=== PATIENT | female | born 1955 | race Caucasian/White ===

== ENCOUNTER 2016-06-14 17:00 | Inpatient (IN) | payer BC, OTHER ==
[2016-06-14] MEDS ORDERED: Diltiazem 25 MG/5 ML SDV IVPUSH ONE (17:27)
[2016-06-14] MEDS ORDERED: Diltiazem 100 MG in Sodium Chloride 0.9% 100 ML IV SCH ×2 (17:30→18:15)
--- NOTE | 2016-06-14 17:31 | EDM.PDOC ---
ED HISTORY OF PRESENT ILLNESS - General Chief Complaint: Cardiovascular Problem Stated Complaint: HIGH BP/heart racing Time Seen by Provider: 06/14/16 17:25 Source of Information: Reports: Patient, Family (spouse) History Limitations: Reports: No limitations - History of Present Illness INITIAL COMMENTS - FREE TEXT/NARRATIVE: 60-year-old female presents the ED with a awareness of heart palpitations and racing heart with a little bit of heaviness in her central chest. Symptoms been off and on all day. The 3:00 and it seemed to get worse and therefore she decided she needed to come to the ED. She has a history of intermittent atrial fibrillation. She was cardioverted about 5 years ago and placed on Betapace and did well for about 5 years. When she went in for her complete physical examination with Dr. Guzman in the early part of March of this year he was again identified that she was in nature fibrillation. Patient had been relatively asymptomatic at that time. She is once again sent to [facility] and has been followed by cardiology since. Medications were adjusted by her family life counselor last week Tuesday. She was placed on Toprol to provide 24-hour coverage and taken off the Betapace. She also has hypertension which was uncontrolled at last visit. Her fit bit was reading a BP of 226/129 at home. Apparently her amlodipine was discontinued last week as well. She does denies feeling dizzy or lightheaded. Slight heaviness in her chest. No shortness of breath. Able to walk without any difficulty. Denies cough or sputum production. No fever or chills. Patient is an Elliquis 5 mg twice a day as an anticoagulant. Symptom Onset Date: 06/14/16 (Well aware of palpitations since getting up this am. getting up this morning.) Timing/Duration: Reports: Hour(s):, Sudden onset Severity: moderate (Heart rate is up as high as 165 per minute.) Location, General: Reports: chest Quality: Reports: Ache (Slight central chest heaviness.), Pressure (Mild central chest pressure.) Improves with: Reports: None, Other Worsens with: Reports: None Context, General: Denies: Activity (Initially seems to make it better or worse.) , Exercise, Lifting, Sick contact, Trauma, Other Associated Symptoms (General): Reports: chest pain. Denies: no other symptoms, confusion, cough (See history of present illness), cough w sputum, diaphoresis, fever/chills, headaches, loss of appetite, malaise, nausea/vomiting, rash, seizure, shortness of breath, syncope, weakness Treatments CARDIAC CATH LAB MANAGER: Reports: Other (see below) - Related Data Allergies/ADRs: Allergies Allergy/AdvReac Type Severity Reaction Status Date / Time carisoprodol [From Soma] Allergy Hives Verified 06/14/16 17:26 ketorolac tromethamine Allergy Hives Verified 06/14/16 17:26 [From Toradol] Home Meds: Home Meds Allopurinol [Zyloprim] 150 mg PO DAILY 01/31/15 [History] Fexofenadine HCl [Aller-Ease] 180 mg PO DAILY 01/31/15 [History] Furosemide [Lasix] 40 mg PO DAILY 01/31/15 [History] Losartan [Cozaar] 50 mg PO BID 01/31/15 [History] Spironolactone [Aldactone] 25 mg PO DAILY 01/31/15 [History] Apixaban [Eliquis] 5 mg PO BID 06/14/16 [History] Metoprolol Succinate [Toprol XL] 100 tab PO DAILY 06/14/16 [History] Past Medical History Cardiovascular History: Reports: Afib (Is on Eliquis.), Hypertension ( Intermittent atrial fibrillation although present but poorly for the last month. ) Other Cardiovascular History: cardioversion Other OB/BYN History: X 2 Hematologic History: Reports: Other (see below) (5 years when she was initially is seen she was identified to have a very high hemoglobin was greater than 19 with a very high hematocrit. She was thus sent to [facility] for hematology evaluation and just as she was going to have her bone marrow biopsy done she went into atrial fibrillation. She was thus placed on warfarin for a lengthy period of time eventually cardioverted back to sinus rhythm in which is what she knew she had remained up until March of this year apparently the bone marrow did not yield anything except for erythropoiesis.) - Past Surgical History Female Surgical History: Reports: section, Hysterectomy ( ovaries were retained.) Social & Family History - Tobacco Use Smoking Status *Q: Never Smoker Second Hand Smoke Exposure: No - Recreational Drug Use Recreational Drug Use: No - Living Situation & Occupation Living situation: Reports: Occupation: employed ED ROS GENERAL - Review of Systems Review Of Systems: See Below Constitutional: Denies: fever, chills, malaise, weakness, fatigue, decreased appetite, weight loss HEENT: Reports: No symptoms Respiratory: Denies: Shortness of Breath, Wheezing, Pleuritic Chest Pain Cardiovascular: Reports: Chest pain, Blood pressure problem (Slight central chest heaviness.), Palpitations. Denies: Claudication ( Hypertension), Dyspnea on exertion, Edema, Lightheadedness, Orthopnea Endocrine: Reports: no symptoms GI/Abdominal: Reports: No symptoms : Reports: no symptoms Musculoskeletal: Reports: no symptoms Skin: Reports: no symptoms Neurological: Reports: No Symptoms Psychiatric: Reports: No symptoms, Other Immunologic: Reports: no symptoms ED EXAM, GENERAL - Physical Exam Exam: See Below Exam Limited By: No limitations General Appearance: alert, WD/WN, no apparent distress Eye Exam: bilateral eye: normal inspection Neck: normal inspection, supple, non-tender, full range of motion. No: lymphadenopathy (L), lymphadenopathy (R) Respiratory/Chest: no respiratory distress, lungs clear, normal breath sounds, no accessory muscle use, chest non-tender Cardiovascular: no edema, no gallop, no JVD, no murmur, no rub, irregularly irregular (Tyshawn confirms a 2 fibrillation as high as 167 per minute.) Peripheral Pulses: 1+: posterior tibial (L), posterior tibial (R), dorsalis pedis (L), dorsalis pedis (R) GI/Abdominal: normal bowel sounds, soft, non tender, no organomegaly, no distention, no abnormal bruit Back Exam: normal inspection. No: CVA tenderness (L), CVA tenderness (R) Extremities: normal inspection, normal range of motion, non-tender, no pedal edema, normal capillary refill, other (Varicosities both lower extremity) Neurological: alert, oriented, CN II-XII intact, normal cognition, normal gait Psychiatric: normal affect, normal mood Skin Exam: Warm, Dry, Intact, Normal color, No rash EKG INTERPRETATION EKG Date: 06/14/16 Time: 17:35 Rhythm: a-fib (Average rate is 158 per minute) Rate (beats/min): 158 [place]: normal QRS: other (There are near Q waves in leads V1 to V4. Consider intraseptal ischemia.) ST-T: depressed (Mild ST segment depression in leads one and aVL.) QT: prolonged (QT is mildly prolonged for rate.) Course - Vital Signs Last Recorded V/S: Last Vital Signs Temp 36.7 C 06/14/16 17:05 Pulse 104 H 06/14/16 17:45 Resp 18 06/14/16 17:05 BP 146/120 H 06/14/16 17:45 Pulse Ox 97 06/14/16 17:05 - Orders/Labs/Meds Orders: Active Orders 24 hr Category Date Time Status Admission Status [Patient Status] [ADT] Routine ADT 06/14/16 19:28 Ordered EKG Documentation Completion [RC] STAT Care 06/14/16 17:26 Active Chest 1V Frontal [CR] Stat Exams 06/14/16 17:26 Taken Diltiazem [Cardizem] 100 mg Med 06/14/16 18:15 Active Sodium Chloride 0.9% [Normal Saline] 100 ml IV ASDIRECTED Sodium Chloride 0.9% [Normal Saline] 1,000 ml Med 06/14/16 17:30 Active IV ASDIRECTED Medication Orders Sodium Chloride (Normal Saline) 1,000 mls @ 100 mls/hr IV ASDIRECTED JULISA Last Admin: 06/14/16 17:36 Dose: 100 mls/hr Diltiazem HCl 100 mg/ Sodium (Chloride) 100 mls @ 15 mls/hr IV ASDIRECTED JULISA PRN Reason: 15 MG/HR Labs: Laboratory Tests 06/14/16 06/14/16 06/14/16 Range/Units 17:25 17:25 17:25 WBC 9.41 (3.98-10.04) K/mm3 RBC 5.81 H (3.98-5.22) M/mm3 Hgb 17.4 H (11.2-15.7) gm/L Hct 51.7 H (34.1-44.9) % MCV 89.0 (79.4-94.8) fl MCH 29.9 (25.6-32.2) pg MCHC 33.7 (32.2-35.5) g/dl RDW Std Deviation 46.8 H (36.4-46.3) fL Plt Count 178 L (182-369) K/mm3 MPV 13.0 H (9.4-12.3) fl Neutrophils % (Manual) 53 (40-60) % Band Neutrophils % 16 H (0-10) % Lymphocytes % (Manual) 29 (20-40) % Atypical Lymphs % 0 % Monocytes % (Manual) 1 L (2-10) % Eosinophils % (Manual) 1 (0.7-5.8) % Basophils % (Manual) 0 L (0.1-1.2) Platelet Estimate Adequate RBC Morph Comment Normal Sodium 137 (136-145) mEq/L Potassium 4.3 (3.5-5.1) mEq/L Chloride 101 (98-107) mEq/L Carbon Dioxide 25 (21-32) mEq/L Anion Gap 15.3 H (5-15) BUN 39 H (7-18) mg/dL Creatinine 1.1 H (0.55-1.02) mg/dL Est Cr Clr Drug Dosing 56.13 mL/min Estimated GFR (MDRD) 50 (>60) mL/min BUN/Creatinine Ratio 35.5 H (14-18) Glucose 131 H (80-115) mg/dL Calcium 9.7 (8.5-10.1) mg/dL Magnesium 1.8 (1.8-2.4) mg/dl Total Bilirubin 0.5 (0.2-1.0) mg/dL AST 27 (15-37) U/L ALT 32 (14-59) U/L Alkaline Phosphatase 84 (46-116) U/L CK-MB (CK-2) 3.4 (0-3.6) ng/ml Troponin I < 0.017 (0.00-0.056) ng/mL B-Natriuretic Peptide 228 H (0-100) pg/mL Total Protein 8.0 (6.4-8.2) g/dl Albumin 3.9 (3.4-5.0) g/dl Globulin 4.1 gm/dL Albumin/Globulin Ratio 1.0 (1-2) Meds: Medications Generic Name Dose Route Start Last Admin Trade Name Freq PRN Reason Stop Dose Admin Sodium Chloride 1,000 mls @ 100 mls/hr 06/14/16 17:30 06/14/16 17:36 Normal Saline IV 100 mls/hr ASDIRECTED JULISA Administration Diltiazem HCl 100 mg/ Sodium 100 mls @ 15 mls/hr 06/14/16 18:15 Chloride IV ASDIRECTED JULISA 15 MG/HR Discontinued Medications Generic Name Dose Route Start Last Admin Trade Name Che PRN Reason Stop Dose Admin Diltiazem HCl 10 mg 06/14/16 17:27 06/14/16 17:37 Diltiazem IVPUSH 06/14/16 17:28 10 mg ONETIME ONE Administration Diltiazem HCl 100 mg/ Sodium 100 mls @ 10 mls/hr 06/14/16 17:30 06/14/16 17: 45 Chloride IV 10 mg/hr ASDIRECTED JULISA 10 mls/hr 10 MG/HR Administration - Radiology Interpretation Free Text/Narrative:: 60-year-old female presents to the ED with a markedly elevated blood pressure and a atrial fibrillation with a rate averaging 158 per minute. I see it go as high as 168 on the monitor. Recurrence of atrial fibrillation identified in March of this year and a complete physical exam. Subsequently she was put back on Betapace and was already on amlodipine for blood pressure control. Recently these medications have been changed to Toprol-XL 100 mg daily and amlodipine was discontinued. Blood pressures at home and usually been in the 135 range systolically and 85 or less diastolically. She is a little heaviness in her central chest. She denies being dizzy lightheaded or short of breath. She identified that palpitations have been quite rapid said she got up this morning. Plan she will routine labs performed. ECG done one view chest x-ray Cardizem 10 mg IV bolus and Cardizem drip at 10 mg per hour. - Re-Assessments/Exams Free Text/Narrative Re-Assessment/Exam: 06/14/16 18:10 : Rate is improved to around 135 range. BP is 130/99. ECG confirmed ventricular fibrillation with near Q waves in V1 to V4. There is also mild ST segment depression in leads one and aVL concerning for possible ischemia. She feels much better with very little awareness of palpitations at this time. The chest x-ray done shows mild cardiomegaly with mild diffuse vascular congestion particularly at the right hilum. There are no pleural effusions, remainder of her labs are pending. Plan I will put a Cardizem drip to 15 mg per hour. 06/14/16 18:44 white count is 9.41 with 53% neutrophils and 16% band cells reported. This needs to be reviewed by pathology. Hemoglobin 17.4 with hematocrit of 51.7 pelvis 178,000. Chemistry shows a sodium of 137 potassium 4.3 anion gap of 15.3 BUN is 39. Crit is 1.1 glucose is 131 BNP is 228. Troponin is normal at less than 0.017 and CK-MB fraction is 3.4. Therefore no evidence of myocardial infarction at this time. Sutures on a Cardizem drip she' ll need to be converted to oral medications and she will have to be admitted to the intensive care unit because of a Cardizem drip. Blood pressure at this time is down to 139/97. Heart rate is 110. 06/14/16 19:30; cased discussed with Dr. Martinez buttermaker continuous churn hospitalist and the patient will be admitted to the intensive care unit due to being on a Cardizem drip. Tentatively she will be converted to the oral form of Cardizem for rate control. This will also provide better blood pressure control. Departure - Departure Time of Disposition: 19:31 Disposition: Admitted As Inpatient 65 Reason for Transfer *Q: Other Condition: fair Clinical Impression: Chronic atrial fibrillation with rapid ventricular response, Uncontrolled hypertension CHF NYHA class III (symptoms with mildly strenuous activities) Qualifiers: Congestive heart failure type: unspecified congestive heart failure type Qualified Code(s): I50.9 - Heart failure, unspecified Forms: ED Department Discharge - My Orders Last 24 Hours: My Active Orders 06/14/16 17:26 EKG Documentation Completion [RC] STAT Chest 1V Frontal [CR] Stat 06/14/16 17:30 Sodium Chloride 0.9% [Normal Saline] 1,000 ml IV ASDIRECTED 06/14/16 18:15 Diltiazem [Cardizem] 100 mg Sodium Chloride 0.9% [Normal Saline] 100 ml IV ASDIRECTED 06/14/16 19:28 Admission Status [Patient Status] [ADT] Routine - Assessment/Plan Last 24 Hours: My Active Orders 06/14/16 17:26 EKG Documentation Completion [RC] STAT Chest 1V Frontal [CR] Stat 06/14/16 17:30 Sodium Chloride 0.9% [Normal Saline] 1,000 ml IV ASDIRECTED 06/14/16 18:15 Diltiazem [Cardizem] 100 mg Sodium Chloride 0.9% [Normal Saline] 100 ml IV ASDIRECTED 06/14/16 19:28 Admission Status [Patient Status] [ADT] Routine
[2016-06-14] MEDS: Sodium Chloride 0.9% 1,000 ML IV SCH (17:36)
--- NOTE | 2016-06-14 20:10 | PCM.HP ---
H&P History of Present Illness - General Date of Service: 06/14/16 Admit Problem/Dx: Admission Diagnosis/Problem Admission Diagnosis/Problem Atrial fibrillation Source of Information: Patient, Family, Old records, Provider, RN notes reviewed History Limitations: Reports: No limitations - History of Present Illness Initial Comments - Free Text/Narative: This is a 60 yo white female with past medical hx/o HTN, Gout, AR, Peripheral Edema, Chronic Polycythemia and Obesity who comes in with complaints of intermittent heart palpitation associated with chest heaviness. She denies any feeling of dizziness or lightheadedness. No shortness of breath, dyspnea, nausea or vomiting. Patient carries a hx/o Atrial Fibrillation S/p Cardioversion 5 years ago. She well for 5 years. Unfortunately, she was found recently in atrial fibrillation just as she was about to have a bone marrow biopsy in [place]. Patient just saw cardiology, BARRY Eastman with meds changes. On presentation to ED she was in a-fib with rvr with heart rate as high as 150s. She was also found with malignant blood pressure of 142/120 mmHg. According to patient, her fitbit at home registered a even higher BP of 226/129 mmHg. Patient is currently on cardizem rip. She is full code. - Related Data Allergies/Adverse Reactions: Allergies Allergy/AdvReac Type Severity Reaction Status Date / Time carisoprodol [From Soma] Allergy Hives Verified 06/14/16 17:26 ketorolac tromethamine Allergy Hives Verified 06/14/16 17:26 [From Toradol] Home Medications: Home Meds Allopurinol [Zyloprim] 150 mg PO DAILY 01/31/15 [History] Fexofenadine HCl [Aller-Ease] 180 mg PO DAILY PRN 01/31/15 [History] Furosemide [Lasix] 40 mg PO DAILY 01/31/15 [History] Losartan [Cozaar] 50 mg PO BID 01/31/15 [History] Spironolactone [Aldactone] 25 mg PO DAILY 01/31/15 [History] Apixaban [Eliquis] 5 mg PO BID 06/14/16 [History] Metoprolol Succinate [Toprol XL] 100 tab PO DAILY 06/14/16 [History] Past Medical History Cardiovascular History: Reports: Afib (Is on Eliquis.), Hypertension ( Intermittent atrial fibrillation although present but poorly for the last month. ) Other Cardiovascular History: cardioversion Other OB/BYN History: X 2 Hematologic History: Reports: Other (see below) (5 years when she was initially is seen she was identified to have a very high hemoglobin was greater than 19 with a very high hematocrit. She was thus sent to [place] for hematology evaluation and just as she was going to have her bone marrow biopsy done she went into atrial fibrillation. She was thus placed on warfarin for a lengthy period of time eventually cardioverted back to sinus rhythm in which is what she knew she had remained up until March of this year apparently the bone marrow did not yield anything except for erythropoiesis.) - Past Surgical History Female Surgical History: Reports: section, Hysterectomy ( ovaries were retained.) Social & Family History - Tobacco Use Smoking Status *Q: Never Smoker Second Hand Smoke Exposure: No - Caffeine Use Caffeine Use: Reports: Coffee - Recreational Drug Use Recreational Drug Use: No - Living Situation & Occupation Living situation: Reports: Occupation: employed H&P Review of Systems - Review of Systems: Review Of Systems: See Below HEENT: Reports: no symptoms Pulmonary: Denies: Shortness of Breath Cardiovascular: Reports: chest pain, palpitations, blood pressure problem Gastrointestinal: Denies: Abdominal pain, Nausea, Vomiting Genitourinary: Reports: no symptoms Skin: Denies: cyanosis, pallor, pruritis, rash, erythema Psychiatric: Denies: depression, anxiety, hallucinations Neurological: Reports: No Symptoms Hematologic/Lymphatic: Reports: no symptoms Immunologic: Reports: no symptoms Exam - Exam Exam: See Below - Vital Signs Vital Signs: Last Vital Signs Temp 36.7 C 06/14/16 17:05 Pulse 104 H 06/14/16 17:45 Resp 18 06/14/16 17:05 BP 146/120 H 06/14/16 17:45 Pulse Ox 97 06/14/16 17:05 Weight: 140.614 kg - Exam General: alert, oriented, cooperative, other (Obese). No: mild distress HEENT: Conjunctiva clear, EACs clear, EOMI, Hearing intact, Mucosa moist & pink , Nares patent, Normal nasal septum, Posterior pharynx clear, PERRLA Neck: supple, trachea midline, 2+ carotid pulse wo bruit, full range of motion, other (short and thick) Lungs: Clear to auscultation, Normal respiratory effort Cardiovascular: irregular rhythm, other (irregular rate) Abdomen: normal bowel sounds, soft, other (Obese). No: organomegaly (Female) Exam: Deferred Rectal (Female) Exam: Deferred Back Exam: normal inspection, decreased range of motion Extremities: normal inspection, edema. No: normal pulses, clubbing, cyanosis, calf tenderness Peripheral Pulses: 2+: dorsalis pedis (L), dorsalis pedis (R) Skin: warm, dry, intact Neuro Extensive - Mental Status: oriented x3, normal cognition, memory intact Neuro Extensive - Motor, Sensory, Reflexes: CN II-XII intact, normal gait Psychiatric: alert, normal affect, normal mood - Patient Data Result Diagrams: 06/14/16 17:25 06/14/16 17:25 EKG INTERPRETATION EKG Date: 06/14/16 Time: 17:35 Rhythm: a-fib Rate (beats/min): 158 [place]: normal P-wave: absent QT: prolonged *Q Meaningful Use (ADM) - VTE *Q VTE Criteria *Q: - Stroke *Q Stroke Criteria *Q: - AMI *Q AMI Criteria *Q: Problem List Initiated/Reviewed/Updated: Yes Orders Last 24hrs: Medication Orders Sodium Chloride (Normal Saline) 1,000 mls @ 100 mls/hr IV ASDIRECTED [facility] Last Admin: 06/14/16 17:36 Dose: 100 mls/hr Diltiazem HCl 100 mg/ Sodium (Chloride) 100 mls @ 15 mls/hr IV ASDIRECTED JULISA PRN Reason: 15 MG/HR Assessment/Plan Comment:: Assessment/Plan: Acute: Paroxysmal Atrial Fibrillation with RVR - On Metoprolol 100 mg po BID - Eliquis 5 mg po BID for stroke prophylaxis - Check thyroid panel - Currently on Cardizem drip - Oral Cardizem 180 mg po daily once off drip - Follow up with cardiology after d/c Malignant Hypertension - 146/120 mmHg on presentation, her fibit registered a BP reading of 226/129 - BP Meds: Cozaar 50 mg po BID, Lasix 40 mg po daily and Aldactone 25 mg po daily - Will add Clonidine 0.1 mg po TID x 3 doses only - PRN Hydralazine 20 mg IVP Q4 Chronic: Gout AR Peripheral Edema Polycythemia Morbid Obesity Plan: Admit to ICU Routine AM Labs Resume Home Meds Thyroid Panel PT/OT consult SW/CM for d/c planning Code status:1
[2016-06-14] MEDS ORDERED: HYDROmorphone 1 MG/ML Syringe IVPUSH PRN (20:18)
[2016-06-14] MEDS ORDERED: Bisacodyl 5 MG Tab PO PRN (20:18)
[2016-06-14] MEDS ORDERED: Albuterol/Ipratropium 3.0-0.5 MG/3 ML Neb Soln NEB PRN (20:18)
[2016-06-14] MEDS ORDERED: LORazepam 2 MG/ML MDV IV PRN (20:18)
[2016-06-14] MEDS ORDERED: Polyethylene Glycol 3350 Powder 17 GM Packet PO PRN (20:18)
[2016-06-14] MEDS ORDERED: Acetaminophen 325 MG Tab PO PRN (20:18)
[2016-06-14] MEDS ORDERED: Promethazine 12.5 MG in Sodium Chloride 0.9% 50 ML IV PRN (20:18)
[2016-06-14] MEDS ORDERED: Temazepam 15 MG Cap PO PRN (20:18)
[2016-06-14] MEDS ORDERED: Ondansetron 4 MG/2 ML SDV IV PRN (20:18)
[2016-06-14] MEDS ORDERED: Metoprolol Tartrate 5 MG/5 ML SDV IVPUSH PRN (20:21)
[2016-06-14] MEDS ORDERED: hydrALAZINE 20 MG/ML SDV IVPUSH PRN (20:21)
[2016-06-14] MEDS ORDERED: Loratadine 10 MG Tab PO SCH (20:45)
[2016-06-14] MEDS: Apixaban 5 MG Tab PO SCH (20:59)
[2016-06-14] MEDS: cloNIDine 0.1 MG Tab PO SCH (20:59)
[2016-06-14] MEDS: Losartan 100 MG Tab PO SCH (21:00)
[2016-06-14] MEDS ORDERED: Magnesium Sulfate/Water 2 GM in Premix Bag 1 BAG IV ONE (23:00)
[2016-06-15] MEDS: Sodium Chloride 0.9% 1,000 ML IV SCH (02:53)
[2016-06-15] MEDS: Diltiazem 180 MG Cap.CD PO SCH (05:41)
[2016-06-15] MEDS: cloNIDine 0.1 MG Tab PO SCH ×2 (05:42→12:53)
[2016-06-15] MEDS ORDERED: Diltiazem 180 MG Cap.CD PO SCH ×2 (05:45→09:00)
--- NOTE | 2016-06-15 08:18 | CR ---
Chest: Portable view of the chest was obtained. Comparison: Previous chest x-ray of 11/13/12. Heart size is slightly enlarged. Tortuous thoracic aorta is seen. Lungs are clear. Bony structures are grossly intact. Impression: 1. Nothing acute is identified on portable chest x-ray. Diagnostic code #1
--- NOTE | 2016-06-15 08:45 | PCM.PN ---
- General Info Date of Service: 06/15/16 Admission Dx/Problem (Free Text): Admission Diagnosis/Problem Admission Diagnosis/Problem Atrial fibrillation Subjective Update: Follow Up Functional Status: Reports: pain controlled, tolerating diet, ambulating, urinating. Denies: new symptoms - Review of Systems General: Denies: Fever, Weakness, Fatigue, Malaise, Chills HEENT: Reports: no symptoms Pulmonary: Denies: shortness of breath Cardiovascular: Denies: Chest Pain, Palpitations, Dyspnea on Exertion Gastrointestinal: Denies: Abdominal pain, Nausea, Vomiting Genitourinary: Reports: no symptoms, dysuria Musculoskeletal: Reports: no symptoms Skin: Denies: cyanosis, pallor, rash Neurological: Denies: Dizziness, Seizure, Syncope, Difficulty Walking, Weakness , Gait Disturbance Psychiatric: Denies: depression, anxiety, agitation, hallucinations Systems Review Comment:: No overnight or acute issues. She is doing relatively well. She is now off Cardizem drip. Her pressures have significantly improved. - Patient Data Vitals - most recent: Last Vital Signs Temp 37.1 C 06/15/16 04:00 Pulse 89 06/14/16 23:09 Resp 18 06/15/16 08:00 BP 101/73 06/15/16 08:00 Pulse Ox 93 L 06/15/16 08:00 Weight - most recent: 141.566 kg I&O - last 24 hours: Intake & Output 06/14/16 06/15/16 06/15/16 22:59 06:59 14:59 Intake Total 1138 Output Total 350 400 Balance -350 738 Lab Results last 24 hrs: Laboratory Results - last 24 hr 06/15/16 06/15/16 Range/Units 06:30 06:30 WBC 5.16 (3.98-10.04) K/mm3 RBC 5.02 (3.98-5.22) M/mm3 Hgb 15.1 (11.2-15.7) gm/L Hct 45.4 H (34.1-44.9) % MCV 90.4 (79.4-94.8) fl MCH 30.1 (25.6-32.2) pg MCHC 33.3 (32.2-35.5) g/dl RDW Std Deviation 47.0 H (36.4-46.3) fL Plt Count 159 L (182-369) K/mm3 MPV 12.6 H (9.4-12.3) fl Neut % (Auto) 48.2 (34.0-71.1) % Lymph % (Auto) 39.5 (19.3-51.7) % Floyd % (Auto) 10.3 (4.7-12.5) % Eos % (Auto) 1.4 (0.7-5.8) Baso % (Auto) 0.6 (0.1-1.2) % Neut # 2.49 (1.56-6.13) K/mm3 Lymph # 2.04 (1.18-3.74) K/mm3 Floyd # 0.53 H (0.24-0.36) K/mm3 Eos # 0.07 (0.04-0.36) K/mm3 Baso # 0.03 (0.01-0.08) K/mm3 Sodium 139 (136-145) mEq/L Potassium 4.0 (3.5-5.1) mEq/L Chloride 105 (98-107) mEq/L Carbon Dioxide 26 (21-32) mEq/L Anion Gap 12.0 (5-15) BUN 34 H (7-18) mg/dL Creatinine 1.1 H (0.55-1.02) mg/dL Est Cr Clr Drug Dosing 56.13 mL/min Estimated GFR (MDRD) 50 (>60) mL/min BUN/Creatinine Ratio 30.9 H (14-18) Glucose 121 H (80-115) mg/dL Calcium 8.4 L (8.5-10.1) mg/dL Magnesium 2.0 (1.8-2.4) mg/dl Free T4 1.11 (0.76-1.46) ng/dL TSH 3rd Generation 1.156 (0.358-3.74) uIU/mL Med Orders - Current: Current Medications Acetaminophen (Tylenol) 650 mg PO Q4H PRN PRN Reason: Pain (Mild 1-3)/fever Acetaminophen/Hydrocodone Bitart ([place] 325-5 Mg) 1 tab PO Q4H PRN PRN Reason: Pain (moderate 4-6) Albuterol/Ipratropium (Duoneb 3.0-0.5 Mg/3 Ml) 3 ml NEB Q4H PRN PRN Reason: Shortness Of Breath/wheezing Allopurinol (Zyloprim) 150 mg PO DAILY [facility] Apixaban (Eliquis) 5 mg PO BID [facility] Last Admin: 06/14/16 20:59 Dose: 5 mg Bisacodyl (Dulcolax) 5 mg PO DAILY PRN PRN Reason: Constipation Clonidine HCl (Catapres) 0.1 mg PO Q8H [facility] Last Admin: 06/15/16 05:42 Dose: 0.1 mg Diltiazem HCl (Cardizem Cd) 180 mg PO DAILY [facility] Last Admin: 06/15/16 05:41 Dose: 180 mg Furosemide (Lasix) 40 mg PO DAILY [facility] Hydralazine HCl (Apresoline) 20 mg IVPUSH Q4H PRN PRN Reason: Hypertension Hydromorphone HCl (Dilaudid) 0.25 mg IVPUSH Q2H PRN PRN Reason: Pain (severe 7-10) Sodium Chloride (Normal Saline) 1,000 mls @ 100 mls/hr IV ASDIRECTED [facility] Last Admin: 06/15/16 02:53 Dose: 100 mls/hr Diltiazem HCl 100 mg/ Sodium (Chloride) 100 mls @ 15 mls/hr IV ASDIRECTED [facility] PRN Reason: 15 MG/HR Last Infusion: 06/15/16 05:40 Dose: 0 mg/hr, 0 mls/hr Promethazine HCl 12.5 mg/ (Sodium Chloride) 50.5 mls @ 100 mls/hr IV Q6H PRN PRN Reason: Nausea/Vomiting Lorazepam (Ativan) 1 mg IV Q6H PRN PRN Reason: Nausea/Vomiting Losartan Potassium (Cozaar) 50 mg PO BID [facility] Last Admin: 06/14/16 21:00 Dose: 50 mg Magnesium Sulfate (Pharmacy To Dose - Magnesium Replacement) 0 dose .XX ASDIRECTED PRN PRN Reason: RX DOSE Metoprolol Succinate (Toprol Xl) 100 mg PO DAILY [facility] Metoprolol Tartrate (Lopressor) 5 mg IVPUSH Q4H PRN PRN Reason: Tachycardia Ondansetron HCl (Zofran) 4 mg IV Q6H PRN PRN Reason: Nausea/Vomiting Polyethylene Glycol (Miralax) 17 gm PO DAILY PRN PRN Reason: Constipation Potassium Chloride (Pharmacy To Dose - Potassium Replacement) 0 dose .XX ASDIRECTED PRN PRN Reason: RX DOSE Senna/Docusate Sodium (Senna Plus) 1 tab PO BID PRN PRN Reason: Constipation Spironolactone (Aldactone) 25 mg PO DAILY [facility] Temazepam (Restoril) 30 mg PO BEDTIME PRN PRN Reason: Sleep Discontinued Medications Diltiazem HCl (Diltiazem) 10 mg IVPUSH ONETIME ONE Stop: 06/14/16 17:28 Last Admin: 06/14/16 17:37 Dose: 10 mg Diltiazem HCl (Cardizem Cd) 180 mg PO DAILY [facility] Diltiazem HCl (Cardizem Cd) 180 mg PO DAILY [facility] Diltiazem HCl 100 mg/ Sodium (Chloride) 100 mls @ 10 mls/hr IV ASDIRECTED [facility] PRN Reason: 10 MG/HR Last Admin: 06/14/16 17:45 Dose: 10 mg/hr, 10 mls/hr Magnesium Sulfate 2 gm/ Premix 50 mls @ 50 mls/hr IV ONETIME ONE Stop: 06/14/16 23:59 Last Admin: 06/14/16 23:09 Dose: 50 mls/hr Loratadine (Claritin) 10 mg PO DAILY [facility] Last Admin: 06/14/16 21:01 Dose: Not Given - Exam General: alert, oriented, cooperative, other (Obese) HEENT: Pupils equal, Pupils reactive, EOMI, Mucous membr. moist/pink Neck: supple, trachea midline, no JVD, no thyromegaly, other (short and thick) Lungs: Clear to auscultation, Normal respiratory effort Cardiovascular: Irregular Rhythm, Other (irregular rate) Abdomen: bowel sounds present, soft, no tenderness, no distension, other (Obese) (Female) Exam: Deferred Back Exam: normal inspection, decreased range of motion Extremities: no edema, normal pulses, no tenderness/swelling, no clubbing, no cyanosis, no calf tenderness Peripheral Pulses: 2+: dorsalis pedis (L), dorsalis pedis (R) Skin: warm, dry, intact Neurological: no new focal deficit Psy/Mental Status: alert, normal affect, normal mood - Problem List Review Problem List Initiated/Reviewed/Updated: Yes - My Orders Last 24 Hours: My Active Orders 03/20/17 20:18 Cardiac Monitoring [RC] CONTINUOUS Height and Weight [RC] DAILY Intake and Output [RC] QSHIFT Oxygen Therapy [RC] PRN Up With Assistance [RC] ASDIRECTED Up ad Suzie [RC] ASDIRECTED VTE/DVT Education [RC] PER UNIT ROUTINE Vital Signs [RC] Q4HR Acetaminophen [Tylenol] 650 mg PO Q4H PRN Acetaminophen/HYDROcodone [[place] 325-5 MG] 1 tab PO Q4H PRN Albuterol/Ipratropium [DuoNeb 3.0-0.5 MG/3 ML] 3 ml NEB Q4H PRN Bisacodyl [Dulcolax] 5 mg PO DAILY PRN Docusate Sodium/Sennosides [Senna Plus] 1 tab PO BID PRN HYDROmorphone [Dilaudid] 0.25 mg IVPUSH Q2H PRN LORazepam [Ativan] 1 mg IV Q6H PRN Ondansetron [Zofran] 4 mg IV Q6H PRN Polyethylene Glycol 3350 [MiraLAX] 17 gm PO DAILY PRN Promethazine [Phenergan] 12.5 mg Sodium Chloride 0.9% [Normal Saline] 50 ml IV Q6H Temazepam [Restoril] 30 mg PO BEDTIME PRN Resuscitation Status Routine 06/14/16 20:19 RT Aerosol Therapy [RC] ASDIRECTED 06/14/16 20:20 Consult to Case Management [CONS] Routine Consult to Energy Attorney [CONS] Routine OT Evaluation and Treatment [CONS] Routine PT Evaluation and Treatment [CONS] Routine 06/14/16 20:21 Metoprolol Tartrate [Lopressor] 5 mg IVPUSH Q4H PRN hydrALAZINE [Apresoline] 20 mg IVPUSH Q4H PRN 06/14/16 20:30 Magnesium Rep Pharmacy to Dose [Pharmacy to Dose - Magnesium Replacement] 0 dose .XX ASDIRECTED PRN Potassium Rep Pharmacy to Dose [Pharmacy to Dose - Potassium Replacement] 0 dose .XX ASDIRECTED PRN cloNIDine [Catapres] 0.1 mg PO Q8H 06/14/16 21:00 Apixaban [Eliquis] 5 mg PO BID Losartan [Cozaar] 50 mg PO BID 06/14/16 Dinner Regular Diet [DIET] 06/15/16 05:45 Diltiazem [Cardizem CD] 180 mg PO DAILY 06/15/16 07:00 EKG Documentation Completion [RC] AM 06/15/16 09:00 Allopurinol [Zyloprim] 150 mg PO DAILY Furosemide [Lasix] 40 mg PO DAILY Metoprolol Succinate [Toprol XL] 100 mg PO DAILY Spironolactone [Aldactone] 25 mg PO DAILY 06/16/16 05:11 BASIC METABOLIC PANEL,BMP [CHEM] AM CBC WITH AUTO DIFF [HEME] AM MAGNESIUM [CHEM] AM 06/17/16 05:11 MAGNESIUM [CHEM] AM - Plan Plan:: Assessment/Plan: Acute: S/p Paroxysmal Atrial Fibrillation with RVR, HR now contrilled - On Metoprolol 100 mg po BID and Cardizem 180 po daily - Eliquis 5 mg po BID for stroke prophylaxis - Thyroid panel wnl - Now off Cardizem drip - Oral Cardizem 180 mg po daily once off drip - Follow up with cardiology after d/c S/p Malignant Hypertension - 146/120 mmHg on presentation, her fibit registered a BP reading of 226/129 - BP Meds: Cozaar 50 mg po BID, Lasix 40 mg po daily and Aldactone 25 mg po daily - Will add Clonidine 0.1 mg po TID x 3 doses only - PRN Hydralazine 20 mg IVP Q4 Chronic: Gout AR Peripheral Edema Polycythemia Morbid Obesity Plan: She is clinically stable Routine AM Labs Continue PT/OT Encourage to ambulate TID-QID, so we can see his HR response to activity SW/CM for d/c planning Code status:1 Spoke to BARRY Crenshaw today and updated her about patient's clinical progress. Informed her, patient will likely be discharged in AM. Advised to monitor her BP along with her HR. I expressed my concerns with her regarding this this patient being on multiple BP/Rate control meds. She will either address it or patient's PCP on follow up appointment.
[2016-06-15] MEDS: Apixaban 5 MG Tab PO SCH ×2 (08:50→21:01)
[2016-06-15] MEDS: Losartan 100 MG Tab PO SCH ×2 (08:50→21:01)
[2016-06-15] MEDS: Furosemide 20 MG Tab PO SCH (08:51)
[2016-06-15] MEDS: Spironolactone 25 MG Tab PO SCH (08:51)
[2016-06-15] MEDS: Metoprolol Succinate 50 MG Tab.ER PO SCH (08:52)
[2016-06-15] MEDS: Allopurinol 300 MG Tab PO SCH (08:52)
[2016-06-15] MEDS ORDERED: HYDROmorphone 0.5 MG/0.5 ML Syringe IVPUSH PRN (10:59)
[2016-06-15] MEDS ORDERED: Temazepam 30 MG Cap PO PRN (10:59)
[2016-06-16] MEDS: Allopurinol 300 MG Tab PO SCH (09:23)
[2016-06-16] MEDS: Losartan 100 MG Tab PO SCH ×2 (09:23→20:19)
[2016-06-16] MEDS: Diltiazem 180 MG Cap.CD PO SCH ×3 (09:23→21:44)
[2016-06-16] MEDS: Furosemide 20 MG Tab PO SCH (09:24)
[2016-06-16] MEDS: Metoprolol Succinate 50 MG Tab.ER PO SCH (09:24)
[2016-06-16] MEDS: Spironolactone 25 MG Tab PO SCH (09:25)
[2016-06-16] MEDS: Apixaban 5 MG Tab PO SCH ×2 (09:25→20:20)
[2016-06-16] MEDS ORDERED: Magnesium Sulfate/Water 2 GM in Premix Bag 1 BAG IV ONE (09:30)
--- NOTE | 2016-06-16 14:20 | PCM.PN ---
<Marly Leos - Last Filed: 06/16/16 14:10> - General Info Date of Service: 06/16/16 Admission Dx/Problem (Free Text): Admission Diagnosis/Problem Admission Diagnosis/Problem Atrial fibrillation Joyce is seen early this morning and again this afternoon. Initially early this morning she was doing well, no concerns/complaints. Slept well. No palpitations or chest pressure- telemetry was with stable HR of 80-90 overnight. Plan for day was discharge home pending ambulation and heartrate status with activity. Later morning with ambulation/walking in halls HR jumped up to 150-160's. She felt associated chest heaviness with this. With rest this sensation improved but HR remained elevated, she rec'd lopressor IV which brought HR down to 90-100 's. She will not be discharged home today. This afternoon she has not noted further chest heaviness or palpitations. B/P's have been maintained. Functional Status: Reports: pain controlled, tolerating diet, ambulating, urinating. Denies: new symptoms - Review of Systems General: Reports: No Symptoms HEENT: Reports: no symptoms Pulmonary: Reports: no symptoms Cardiovascular: Reports: Palpitations, Other (mild sensation of chest heaviness with activity- with HR up to 150-160's). Denies: Dyspnea on Exertion, Orthopnea , Edema, Lightheadedness Gastrointestinal: Reports: No symptoms Genitourinary: Reports: no symptoms Musculoskeletal: Reports: no symptoms Skin: Reports: no symptoms Neurological: Reports: No Symptoms Psychiatric: Reports: no symptoms - Patient Data Vitals - most recent: Last Vital Signs Temp 97.2 F 06/16/16 09:13 Pulse 150 H 06/16/16 11:12 Resp 18 06/16/16 09:13 BP 113/60 06/16/16 11:12 Pulse Ox 95 06/16/16 09:13 Weight - most recent: 140.84 kg I&O - last 24 hours: Intake & Output 06/15/16 06/16/16 06/16/16 22:59 06:59 14:59 Intake Total 1500 1200 450 Output Total 2200 1500 Balance -700 -300 450 Lab Results last 24 hrs: Laboratory Results - last 24 hr 06/16/16 06/16/16 Range/Units 06:36 06:36 WBC 5.76 (3.98-10.04) K/mm3 RBC 5.45 H (3.98-5.22) M/mm3 Hgb 16.4 H (11.2-15.7) gm/L Hct 49.0 H (34.1-44.9) % MCV 89.9 (79.4-94.8) fl MCH 30.1 (25.6-32.2) pg MCHC 33.5 (32.2-35.5) g/dl RDW Std Deviation 46.9 H (36.4-46.3) fL Plt Count 154 L (182-369) K/mm3 MPV 13.2 H (9.4-12.3) fl Neut % (Auto) 48.5 (34.0-71.1) % Lymph % (Auto) 41.7 (19.3-51.7) % [place] % (Auto) 8.3 (4.7-12.5) % Eos % (Auto) 1.2 (0.7-5.8) Baso % (Auto) 0.3 (0.1-1.2) % Neut # 2.79 (1.56-6.13) K/mm3 Lymph # 2.40 (1.18-3.74) K/mm3 [place] # 0.48 H (0.24-0.36) K/mm3 Eos # 0.07 (0.04-0.36) K/mm3 Baso # 0.02 (0.01-0.08) K/mm3 Sodium 140 (136-145) mEq/L Potassium 4.5 (3.5-5.1) mEq/L Chloride 104 (98-107) mEq/L Carbon Dioxide 30 (21-32) mEq/L Anion Gap 10.5 (5-15) BUN 33 H (7-18) mg/dL Creatinine 1.0 (0.55-1.02) mg/dL Est Cr Clr Drug Dosing 61.74 mL/min Estimated GFR (MDRD) 56 (>60) mL/min BUN/Creatinine Ratio 33.0 H (14-18) Glucose 125 H (80-115) mg/dL Calcium 9.2 (8.5-10.1) mg/dL Magnesium 1.8 (1.8-2.4) mg/dl Med Orders - Current: Current Medications Acetaminophen (Tylenol) 650 mg PO Q4H PRN PRN Reason: Pain (Mild 1-3)/fever Acetaminophen/Hydrocodone Bitart ([place] 325-5 Mg) 1 tab PO Q4H PRN PRN Reason: Pain (moderate 4-6) Allopurinol (Zyloprim) 150 mg PO DAILY [facility] Last Admin: 06/16/16 09:23 Dose: 150 mg Apixaban (Eliquis) 5 mg PO BID [facility] Last Admin: 06/16/16 09:25 Dose: 5 mg Bisacodyl (Dulcolax) 5 mg PO DAILY PRN PRN Reason: Constipation Diltiazem HCl (Cardizem Cd) 180 mg PO DAILY [facility] Last Admin: 06/16/16 09:23 Dose: 180 mg Furosemide (Lasix) 40 mg PO DAILY [facility] Last Admin: 06/16/16 09:24 Dose: 40 mg Hydralazine HCl (Apresoline) 20 mg IVPUSH Q4H PRN PRN Reason: Hypertension Hydromorphone HCl (Dilaudid) 0.25 mg IVPUSH Q2H PRN PRN Reason: Pain (severe 7-10) Promethazine HCl 12.5 mg/ (Sodium Chloride) 50.5 mls @ 100 mls/hr IV Q6H PRN PRN Reason: Nausea/Vomiting Lorazepam (Ativan) 1 mg IV Q6H PRN PRN Reason: Nausea/Vomiting Losartan Potassium (Cozaar) 50 mg PO BID [facility] Last Admin: 06/16/16 09:23 Dose: 50 mg Metoprolol Succinate (Toprol Xl) 100 mg PO DAILY [facility] Last Admin: 06/16/16 09:24 Dose: 100 mg Metoprolol Tartrate (Lopressor) 5 mg IVPUSH Q4H PRN PRN Reason: Tachycardia Last Admin: 06/16/16 11:12 Dose: 5 mg Ondansetron HCl (Zofran) 4 mg IV Q6H PRN PRN Reason: Nausea/Vomiting Polyethylene Glycol (Miralax) 17 gm PO DAILY PRN PRN Reason: Constipation Senna/Docusate Sodium (Senna Plus) 1 tab PO BID PRN PRN Reason: Constipation Spironolactone (Aldactone) 25 mg PO DAILY [facility] Last Admin: 06/16/16 09:25 Dose: 25 mg Temazepam (Restoril) 30 mg PO BEDTIME PRN PRN Reason: Sleep Discontinued Medications Albuterol/Ipratropium (Duoneb 3.0-0.5 Mg/3 Ml) 3 ml NEB Q4H PRN PRN Reason: Shortness Of Breath/wheezing Clonidine HCl (Catapres) 0.1 mg PO Q8H [facility] Last Admin: 06/15/16 12:53 Dose: 0.1 mg Diltiazem HCl (Diltiazem) 10 mg IVPUSH ONETIME ONE Stop: 06/14/16 17:28 Last Admin: 06/14/16 17:37 Dose: 10 mg Diltiazem HCl (Cardizem Cd) 180 mg PO DAILY [facility] Diltiazem HCl (Cardizem Cd) 180 mg PO DAILY [facility] Hydromorphone HCl (Dilaudid) 0.25 mg IVPUSH Q2H PRN PRN Reason: Pain (severe 7-10) Diltiazem HCl 100 mg/ Sodium (Chloride) 100 mls @ 10 mls/hr IV ASDIRECTED [facility] PRN Reason: 10 MG/HR Last Admin: 06/14/16 17:45 Dose: 10 mg/hr, 10 mls/hr Sodium Chloride (Normal Saline) 1,000 mls @ 100 mls/hr IV ASDIRECTED [facility] Last Admin: 06/15/16 02:53 Dose: 100 mls/hr Diltiazem HCl 100 mg/ Sodium (Chloride) 100 mls @ 15 mls/hr IV ASDIRECTED [facility] PRN Reason: 15 MG/HR Last Infusion: 06/15/16 05:40 Dose: 0 mg/hr, 0 mls/hr Magnesium Sulfate 2 gm/ Premix 50 mls @ 50 mls/hr IV ONETIME ONE Stop: 06/14/16 23:59 Last Admin: 06/14/16 23:09 Dose: 50 mls/hr Magnesium Sulfate 2 gm/ Premix 50 mls @ 25 mls/hr IV ONETIME ONE Stop: 06/16/16 11:29 Last Admin: 06/16/16 09:22 Dose: 25 mls/hr Loratadine (Claritin) 10 mg PO DAILY [facility] Last Admin: 06/14/16 21:01 Dose: Not Given Magnesium Sulfate (Pharmacy To Dose - Magnesium Replacement) 0 dose .XX ASDIRECTED PRN PRN Reason: RX DOSE Potassium Chloride (Pharmacy To Dose - Potassium Replacement) 0 dose .XX ASDIRECTED PRN PRN Reason: RX DOSE Temazepam (Restoril) 30 mg PO BEDTIME PRN PRN Reason: Sleep - Exam Quality Assessment: DVT prophylaxis General: alert, oriented, cooperative, no acute distress HEENT: Pupils equal, Pupils reactive, EOMI, Mucous membr. moist/pink Neck: supple Lungs: Clear to auscultation, Normal respiratory effort Cardiovascular: Irregular Rhythm (Female) Exam: Deferred Back Exam: normal inspection Extremities: no edema, no calf tenderness Peripheral Pulses: 1+: dorsalis pedis (L), dorsalis pedis (R) Skin: warm, dry, intact Neurological: no new focal deficit Psy/Mental Status: alert, normal affect, normal mood EKG INTERPRETATION EKG Date: 06/16/16 Rhythm: a-fib - Problem List & Annotations (1) Chronic atrial fibrillation with rapid ventricular response SNOMED Code(s): 443791291, 599158657530211 Code(s): I48.2 - CHRONIC ATRIAL FIBRILLATION Status: Acute Priority: High Current Visit: Yes (2) Uncontrolled hypertension SNOMED Code(s): 28076360 Code(s): I10 - ESSENTIAL (PRIMARY) HYPERTENSION Status: Acute Priority: High Current Visit: Yes - Problem List Review Problem List Initiated/Reviewed/Updated: Yes - Plan Plan:: Assessment/Plan: Acute: Atrial Fibrillation with RVR, HR up to 150-160 with activity this am - On Metoprolol 100 mg po BID and Cardizem 180 po daily-- will increase cardizem dose to BID - Eliquis 5 mg po BID for stroke prophylaxis - Thyroid panel wnl - Lopressor 5mg IVP PRN for HR control - Follow up with cardiology after d/c; will reschedule with BARRY Crenshaw with [facility] sooner that 2 months (prior f/up appt) S/p Malignant Hypertension---resolved now - 146/120 mmHg on presentation, her fibit registered a BP reading of 226/129 - BP Meds: Cozaar 50 mg po BID, Lasix 40 mg po daily and Aldactone 25 mg po daily Chronic: Gout AR Peripheral Edema Polycythemia Morbid Obesity Discussed possibility of sleep apnea with risk factors of obesity, afib and HTN ; recommend screening. Patient has spoken to PCP about this in the past. She is adamant that she would not have BRENDAN as "I do not snore". Reviewed with her other risk factors as above; strongly recommend screening for BRENDAN as outpatient. We had long discussion re: diet, exercise, wt loss today; recommend wt loss- she is in agreement and seems amendable to work on this after discharge. Encourage to ambulate TID-QID, so we can cont to see HR response with activity Will arrange f/up with PCP within days of discharge and with Change Management Lead within a few weeks of discharge for follow up. Likely discharge in next 24-48 hours pending HR control. <Elisa Bangura M - Last Filed: 06/18/16 14:53> - Patient Data Vitals - most recent: Last Vital Signs Temp 36.7 C 06/18/16 14:29 Pulse 67 06/18/16 14:29 Resp 20 06/18/16 14:29 BP 123/57 L 06/18/16 14:29 Pulse Ox 99 06/18/16 14:29 I&O - last 24 hours: Intake & Output 06/17/16 06/18/16 06/18/16 22:59 06:59 14:59 Intake Total 1235 1100 330 Output Total 1200 1200 Balance 35 -100 330 Lab Results last 24 hrs: Laboratory Results - last 24 hr 06/17/16 06/18/16 06/18/16 Range/Units 21:08 07:35 07:35 WBC 5.62 (3.98-10.04) K/mm3 RBC 5.69 H (3.98-5.22) M/mm3 Hgb 17.1 H (11.2-15.7) gm/L Hct 50.6 H (34.1-44.9) % MCV 88.9 (79.4-94.8) fl MCH 30.1 (25.6-32.2) pg MCHC 33.8 (32.2-35.5) g/dl RDW Std Deviation 46.5 H (36.4-46.3) fL Plt Count 153 L (182-369) K/mm3 MPV 12.6 H (9.4-12.3) fl Neut % (Auto) 56.5 (34.0-71.1) % Lymph % (Auto) 32.9 (19.3-51.7) % [place] % (Auto) 8.9 (4.7-12.5) % Eos % (Auto) 1.1 (0.7-5.8) Baso % (Auto) 0.4 (0.1-1.2) % Neut # (Auto) 3.18 (1.56-6.13) K/mm3 Lymph # (Auto) 1.85 (1.18-3.74) K/mm3 [place] # (Auto) 0.50 H (0.24-0.36) K/mm3 Eos # (Auto) 0.06 (0.04-0.36) K/mm3 Baso # (Auto) 0.02 (0.01-0.08) K/mm3 Sodium 137 (136-145) mEq/L Potassium 4.5 (3.5-5.1) mEq/L Chloride 102 (98-107) mEq/L Carbon Dioxide 27 (21-32) mEq/L Anion Gap 12.5 (5-15) BUN 35 H (7-18) mg/dL Creatinine 1.2 H (0.55-1.02) mg/dL Est Cr Clr Drug Dosing 51.45 mL/min Estimated GFR (MDRD) 46 (>60) mL/min BUN/Creatinine Ratio 29.2 H (14-18) Glucose 133 H (80-115) mg/dL Calcium 8.7 (8.5-10.1) mg/dL Magnesium 1.8 (1.8-2.4) mg/dl Digoxin 3.1 H (0.9-2.0) ng/mL Med Orders - Current: Current Medications Acetaminophen (Tylenol) 650 mg PO Q4H PRN PRN Reason: Pain (Mild 1-3)/fever Acetaminophen/Hydrocodone Bitart ([place] 325-5 Mg) 1 tab PO Q4H PRN PRN Reason: Pain (moderate 4-6) Last Admin: 06/18/16 01:56 Dose: 1 tab Allopurinol (Zyloprim) 150 mg PO DAILY [facility] Last Admin: 06/18/16 08:53 Dose: 150 mg Apixaban (Eliquis) 5 mg PO BID [facility] Last Admin: 06/18/16 08:51 Dose: 5 mg Ascorbic Acid (Vitamin C) 500 mg PO DAILY [facility] Last Admin: 03/24/17 08:51 Dose: 500 mg Benzocaine/Menthol (Cepacol Sore Throat) 1 lozenge MUCMEM 5XDAY PRN PRN Reason: Sore Throat Last Admin: 06/16/16 18:09 Dose: 1 lozenge Bisacodyl (Dulcolax) 5 mg PO DAILY PRN PRN Reason: Constipation Digoxin (Lanoxin) 250 mcg PO DAILY@1300 [facility] Last Admin: 06/18/16 13:03 Dose: 250 mcg Diltiazem HCl (Cardizem Cd) 180 mg PO BID [facility] Last Admin: 06/18/16 08:52 Dose: 180 mg Furosemide (Lasix) 40 mg PO DAILY [facility] Last Admin: 06/18/16 08:51 Dose: 40 mg Hydralazine HCl (Apresoline) 20 mg IVPUSH Q4H PRN PRN Reason: Hypertension Hydromorphone HCl (Dilaudid) 0.25 mg IVPUSH Q2H PRN PRN Reason: Pain (severe 7-10) Promethazine HCl 12.5 mg/ (Sodium Chloride) 50.5 mls @ 100 mls/hr IV Q6H PRN PRN Reason: Nausea/Vomiting Lorazepam (Ativan) 1 mg IV Q6H PRN PRN Reason: Nausea/Vomiting Losartan Potassium (Cozaar) 50 mg PO BID [facility] Last Admin: 06/18/16 08:52 Dose: 50 mg Magnesium Oxide (Magnesium Oxide) 400 mg PO DAILY [facility] Last Admin: 06/18/16 08:52 Dose: 400 mg Metoprolol Succinate (Toprol Xl) 100 mg PO DAILY [facility] Last Admin: 06/18/16 08:51 Dose: 100 mg Metoprolol Tartrate (Lopressor) 5 mg IVPUSH Q4H PRN PRN Reason: Tachycardia Last Admin: 06/16/16 11:12 Dose: 5 mg Ondansetron HCl (Zofran) 4 mg IV Q6H PRN PRN Reason: Nausea/Vomiting Polyethylene Glycol (Miralax) 17 gm PO DAILY PRN PRN Reason: Constipation Senna/Docusate Sodium (Senna Plus) 1 tab PO BID PRN PRN Reason: Constipation Sodium Chloride ([place] Nasal [place]) 0 ml SUSANNE Q2H PRN PRN Reason: Dryness Spironolactone (Aldactone) 25 mg PO DAILY [facility] Last Admin: 06/18/16 08:51 Dose: 25 mg Temazepam (Restoril) 30 mg PO BEDTIME PRN PRN Reason: Sleep Discontinued Medications Albuterol/Ipratropium (Duoneb 3.0-0.5 Mg/3 Ml) 3 ml NEB Q4H PRN PRN Reason: Shortness Of Breath/wheezing Clonidine HCl (Catapres) 0.1 mg PO Q8H [facility] Last Admin: 06/15/16 12:53 Dose: 0.1 mg Digoxin (Lanoxin) 500 mcg IVPUSH ONETIME ONE Stop: 06/17/16 13:01 Last Admin: 06/17/16 12:41 Dose: 500 mcg Digoxin (Lanoxin) 250 mcg IVPUSH Q6H [facility] Stop: 06/18/16 07:01 Last Admin: 06/17/16 20:08 Dose: 250 mcg Digoxin (Lanoxin) 250 mcg IVPUSH Q6H [facility] Stop: 06/18/16 03:03 Last Admin: 06/17/16 22:39 Dose: Not Given Digoxin (Lanoxin) 250 mcg IVPUSH Q6H [facility] Stop: 06/18/16 02:01 Last Admin: 06/18/16 02:55 Dose: Not Given Digoxin (Lanoxin) 250 mcg IVPUSH ONETIME ONE Stop: 06/18/16 09:16 Last Admin: 06/18/16 09:51 Dose: 250 mcg Diltiazem HCl (Diltiazem) 10 mg IVPUSH ONETIME ONE Stop: 06/14/16 17:28 Last Admin: 06/14/16 17:37 Dose: 10 mg Diltiazem HCl (Cardizem Cd) 180 mg PO DAILY [facility] Diltiazem HCl (Cardizem Cd) 180 mg PO DAILY [facility] Diltiazem HCl (Cardizem Cd) 180 mg PO DAILY [facility] Last Admin: 06/16/16 09:23 Dose: 180 mg Furosemide (Lasix) 40 mg PO DAILY [facility] Last Admin: 06/16/16 09:24 Dose: 40 mg Hydromorphone HCl (Dilaudid) 0.25 mg IVPUSH Q2H PRN PRN Reason: Pain (severe 7-10) Diltiazem HCl 100 mg/ Sodium (Chloride) 100 mls @ 10 mls/hr IV ASDIRECTED [facility] PRN Reason: 10 MG/HR Last Admin: 06/14/16 17:45 Dose: 10 mg/hr, 10 mls/hr Sodium Chloride (Normal Saline) 1,000 mls @ 100 mls/hr IV ASDIRECTED [facility] Last Admin: 06/15/16 02:53 Dose: 100 mls/hr Diltiazem HCl 100 mg/ Sodium (Chloride) 100 mls @ 15 mls/hr IV ASDIRECTED [facility] PRN Reason: 15 MG/HR Last Infusion: 06/15/16 05:40 Dose: 0 mg/hr, 0 mls/hr Magnesium Sulfate 2 gm/ Premix 50 mls @ 50 mls/hr IV ONETIME ONE Stop: 06/14/16 23:59 Last Admin: 06/14/16 23:09 Dose: 50 mls/hr Magnesium Sulfate 2 gm/ Premix 50 mls @ 25 mls/hr IV ONETIME ONE Stop: 06/16/16 11:29 Last Admin: 06/16/16 09:22 Dose: 25 mls/hr Loratadine (Claritin) 10 mg PO DAILY [facility] Last Admin: 06/14/16 21:01 Dose: Not Given Magnesium Sulfate (Pharmacy To Dose - Magnesium Replacement) 0 dose .XX ASDIRECTED PRN PRN Reason: RX DOSE Potassium Chloride (Pharmacy To Dose - Potassium Replacement) 0 dose .XX ASDIRECTED PRN PRN Reason: RX DOSE Temazepam (Restoril) 30 mg PO BEDTIME PRN PRN Reason: Sleep - Plan Plan:: LOS extended with medication adjustment and required monitoring.
[2016-06-16] MEDS: Ascorbic Acid 500 MG Tab PO SCH (18:09)
[2016-06-16] MEDS: Benzocaine/Cetylpyridinium/Menthol Lozenge MUCMEM PRN (18:09)
[2016-06-17] MEDS: Acetaminophen/HYDROcodone 325-5 MG Tab PO PRN (03:42)
[2016-06-17] MEDS: Losartan 100 MG Tab PO SCH ×2 (08:32→20:08)
[2016-06-17] MEDS: Spironolactone 25 MG Tab PO SCH (08:32)
[2016-06-17] MEDS: Metoprolol Succinate 50 MG Tab.ER PO SCH (08:32)
[2016-06-17] MEDS: Diltiazem 180 MG Cap.CD PO SCH ×2 (08:33→20:07)
[2016-06-17] MEDS: Apixaban 5 MG Tab PO SCH ×2 (08:33→20:07)
[2016-06-17] MEDS: Ascorbic Acid 500 MG Tab PO SCH (08:33)
[2016-06-17] MEDS: Allopurinol 300 MG Tab PO SCH (08:33)
[2016-06-17] MEDS: Furosemide 40 MG Tab PO SCH (08:34)
[2016-06-17] MEDS ORDERED: Digoxin 500 MCG/2 ML Amp IVPUSH ONE (13:00)
--- NOTE | 2016-06-17 13:27 | PCM.PN ---
- General Info Date of Service: 06/17/16 Admission Dx/Problem (Free Text): Admission Diagnosis/Problem Admission Diagnosis/Problem Atrial fibrillation Patient seen this afternoon. She ambulated this morning with HR up to 150-160's with activity. HR overnight 80-90's. During ambulation she felt heaviness and pounding in her chest. Generally she does not feel the best today. She slept ok last night, good appetite, no n/v/d. Denies CP, SOB, [place]. She is fatigued. Functional Status: Reports: tolerating diet, ambulating, urinating. Denies: new symptoms - Review of Systems General: Reports: Fatigue HEENT: Reports: no symptoms Pulmonary: Denies: shortness of breath, cough Cardiovascular: Reports: Other (sensation of heaviness in her chest with activity only- resolved after a few minutes of rest). Denies: Palpitations, Dyspnea on Exertion, Lightheadedness Gastrointestinal: Reports: No symptoms Genitourinary: Reports: no symptoms Musculoskeletal: Reports: no symptoms Neurological: Reports: No Symptoms Psychiatric: Reports: no symptoms - Patient Data Vitals - most recent: Last Vital Signs Temp 97.9 F 06/17/16 12:44 Pulse 84 06/17/16 12:44 Resp 18 06/17/16 12:44 BP 130/92 H 06/17/16 12:44 Pulse Ox 99 06/17/16 12:44 Weight - most recent: 308 lb 11.2 oz I&O - last 24 hours: Intake & Output 06/16/16 06/17/16 06/17/16 22:59 06:59 14:59 Intake Total 780 1060 450 Output Total 1900 Balance 780 -840 450 Lab Results last 24 hrs: Laboratory Results - last 24 hr 06/17/16 06/17/16 Range/Units 07:04 07:04 WBC 6.07 (3.98-10.04) K/mm3 RBC 5.54 H (3.98-5.22) M/mm3 Hgb 16.5 H (11.2-15.7) gm/L Hct 49.2 H (34.1-44.9) % MCV 88.8 (79.4-94.8) fl MCH 29.8 (25.6-32.2) pg MCHC 33.5 (32.2-35.5) g/dl RDW Std Deviation 46.2 (36.4-46.3) fL Plt Count 163 L (182-369) K/mm3 MPV 13.2 H (9.4-12.3) fl Neut % (Auto) 56.3 (34.0-71.1) % Lymph % (Auto) 33.4 (19.3-51.7) % Davis % (Auto) 8.6 (4.7-12.5) % Eos % (Auto) 1.2 (0.7-5.8) Baso % (Auto) 0.3 (0.1-1.2) % Neut # (Auto) 3.42 (1.56-6.13) K/mm3 Lymph # (Auto) 2.03 (1.18-3.74) K/mm3 Davis # (Auto) 0.52 H (0.24-0.36) K/mm3 Eos # (Auto) 0.07 (0.04-0.36) K/mm3 Baso # (Auto) 0.02 (0.01-0.08) K/mm3 Sodium 138 (136-145) mEq/L Potassium 4.2 (3.5-5.1) mEq/L Chloride 102 (98-107) mEq/L Carbon Dioxide 26 (21-32) mEq/L Anion Gap 14.2 (5-15) BUN 33 H (7-18) mg/dL Creatinine 1.0 (0.55-1.02) mg/dL Est Cr Clr Drug Dosing 61.74 mL/min Estimated GFR (MDRD) 56 (>60) mL/min BUN/Creatinine Ratio 33.0 H (14-18) Glucose 126 H (80-115) mg/dL Calcium 8.9 (8.5-10.1) mg/dL Magnesium 1.8 (1.8-2.4) mg/dl Med Orders - Current: Current Medications Acetaminophen (Tylenol) 650 mg PO Q4H PRN PRN Reason: Pain (Mild 1-3)/fever Acetaminophen/Hydrocodone Bitart ([place] 325-5 Mg) 1 tab PO Q4H PRN PRN Reason: Pain (moderate 4-6) Last Admin: 06/17/16 03:42 Dose: 1 tab Allopurinol (Zyloprim) 150 mg PO DAILY [facility] Last Admin: 06/17/16 08:33 Dose: 150 mg Apixaban (Eliquis) 5 mg PO BID [facility] Last Admin: 06/17/16 08:33 Dose: 5 mg Ascorbic Acid (Vitamin C) 500 mg PO DAILY [facility] Last Admin: 06/17/16 08:33 Dose: 500 mg Benzocaine/Menthol (Cepacol Sore Throat) 1 lozenge MUCMEM 5XDAY PRN PRN Reason: Sore Throat Last Admin: 06/16/16 18:09 Dose: 1 lozenge Bisacodyl (Dulcolax) 5 mg PO DAILY PRN PRN Reason: Constipation Digoxin (Lanoxin) 250 mcg IVPUSH Q6H [facility] Stop: 06/18/16 07:01 Digoxin (Lanoxin) 250 mcg PO DAILY@1300 [facility] Diltiazem HCl (Cardizem Cd) 180 mg PO BID [facility] Last Admin: 06/17/16 08:33 Dose: 180 mg Furosemide (Lasix) 40 mg PO DAILY [facility] Last Admin: 06/17/16 08:34 Dose: 40 mg Hydralazine HCl (Apresoline) 20 mg IVPUSH Q4H PRN PRN Reason: Hypertension Hydromorphone HCl (Dilaudid) 0.25 mg IVPUSH Q2H PRN PRN Reason: Pain (severe 7-10) Promethazine HCl 12.5 mg/ (Sodium Chloride) 50.5 mls @ 100 mls/hr IV Q6H PRN PRN Reason: Nausea/Vomiting Lorazepam (Ativan) 1 mg IV Q6H PRN PRN Reason: Nausea/Vomiting Losartan Potassium (Cozaar) 50 mg PO BID [facility] Last Admin: 06/17/16 08:32 Dose: 50 mg Magnesium Oxide (Magnesium Oxide) 400 mg PO DAILY [facility] Metoprolol Succinate (Toprol Xl) 100 mg PO DAILY [facility] Last Admin: 06/17/16 08:32 Dose: 100 mg Metoprolol Tartrate (Lopressor) 5 mg IVPUSH Q4H PRN PRN Reason: Tachycardia Last Admin: 06/16/16 11:12 Dose: 5 mg Ondansetron HCl (Zofran) 4 mg IV Q6H PRN PRN Reason: Nausea/Vomiting Polyethylene Glycol (Miralax) 17 gm PO DAILY PRN PRN Reason: Constipation Senna/Docusate Sodium (Senna Plus) 1 tab PO BID PRN PRN Reason: Constipation Spironolactone (Aldactone) 25 mg PO DAILY [facility] Last Admin: 06/17/16 08:32 Dose: 25 mg Temazepam (Restoril) 30 mg PO BEDTIME PRN PRN Reason: Sleep Discontinued Medications Albuterol/Ipratropium (Duoneb 3.0-0.5 Mg/3 Ml) 3 ml NEB Q4H PRN PRN Reason: Shortness Of Breath/wheezing Clonidine HCl (Catapres) 0.1 mg PO Q8H [facility] Last Admin: 06/15/16 12:53 Dose: 0.1 mg Digoxin (Lanoxin) 500 mcg IVPUSH ONETIME ONE Stop: 06/17/16 13:01 Last Admin: 06/17/16 12:41 Dose: 500 mcg Diltiazem HCl (Diltiazem) 10 mg IVPUSH ONETIME ONE Stop: 06/14/16 17:28 Last Admin: 06/14/16 17:37 Dose: 10 mg Diltiazem HCl (Cardizem Cd) 180 mg PO DAILY [facility] Diltiazem HCl (Cardizem Cd) 180 mg PO DAILY [facility] Diltiazem HCl (Cardizem Cd) 180 mg PO DAILY [facility] Last Admin: 06/16/16 09:23 Dose: 180 mg Furosemide (Lasix) 40 mg PO DAILY [facility] Last Admin: 06/16/16 09:24 Dose: 40 mg Hydromorphone HCl (Dilaudid) 0.25 mg IVPUSH Q2H PRN PRN Reason: Pain (severe 7-10) Diltiazem HCl 100 mg/ Sodium (Chloride) 100 mls @ 10 mls/hr IV ASDIRECTED [facility] PRN Reason: 10 MG/HR Last Admin: 06/14/16 17:45 Dose: 10 mg/hr, 10 mls/hr Sodium Chloride (Normal Saline) 1,000 mls @ 100 mls/hr IV ASDIRECTED [facility] Last Admin: 06/15/16 02:53 Dose: 100 mls/hr Diltiazem HCl 100 mg/ Sodium (Chloride) 100 mls @ 15 mls/hr IV ASDIRECTED [facility] PRN Reason: 15 MG/HR Last Infusion: 06/15/16 05:40 Dose: 0 mg/hr, 0 mls/hr Magnesium Sulfate 2 gm/ Premix 50 mls @ 50 mls/hr IV ONETIME ONE Stop: 06/14/16 23:59 Last Admin: 06/14/16 23:09 Dose: 50 mls/hr Magnesium Sulfate 2 gm/ Premix 50 mls @ 25 mls/hr IV ONETIME ONE Stop: 06/16/16 11:29 Last Admin: 06/16/16 09:22 Dose: 25 mls/hr Loratadine (Claritin) 10 mg PO DAILY [facility] Last Admin: 06/14/16 21:01 Dose: Not Given Magnesium Sulfate (Pharmacy To Dose - Magnesium Replacement) 0 dose .XX ASDIRECTED PRN PRN Reason: RX DOSE Potassium Chloride (Pharmacy To Dose - Potassium Replacement) 0 dose .XX ASDIRECTED PRN PRN Reason: RX DOSE Temazepam (Restoril) 30 mg PO BEDTIME PRN PRN Reason: Sleep - Exam Quality Assessment: DVT prophylaxis General: alert, oriented, cooperative, no acute distress HEENT: Pupils equal, Pupils reactive, EOMI, Mucous membr. moist/pink Neck: supple Lungs: Clear to auscultation, Normal respiratory effort Cardiovascular: Irregular Rhythm Abdomen: bowel sounds present, soft, no tenderness, no distension (Female) Exam: Deferred Extremities: no calf tenderness, other (varicosities noted about lower legs bilat) Skin: warm, dry, intact Neurological: no new focal deficit Psy/Mental Status: alert, normal affect, normal mood - Problem List & Annotations (1) Chronic atrial fibrillation with rapid ventricular response SNOMED Code(s): 312438493, 508299587616401 Code(s): I48.2 - CHRONIC ATRIAL FIBRILLATION Status: Acute Priority: High Current Visit: Yes (2) Uncontrolled hypertension SNOMED Code(s): 57280135 Code(s): I10 - ESSENTIAL (PRIMARY) HYPERTENSION Status: Acute Priority: High Current Visit: Yes (3) Obesity SNOMED Code(s): 638131196 Code(s): E66.9 - OBESITY, UNSPECIFIED Status: Chronic Priority: High Current Visit: Yes Qualifiers: Obesity type: due to excess calories Obesity severity: morbid Qualified Code(s): E66.01 - Morbid (severe) obesity due to excess calories - Problem List Review Problem List Initiated/Reviewed/Updated: Yes - My Orders Last 24 Hours: My Active Orders 06/16/16 14:23 Ambulate [RC] QID 06/16/16 17:00 Diltiazem [Cardizem CD] 180 mg PO BID 06/17/16 13:15 Magnesium Oxide 400 mg PO DAILY 06/17/16 13:19 Consult to [employer] [CONS] Routine 06/17/16 19:00 Digoxin [Lanoxin] 250 mcg IVPUSH Q6H 06/17/16 19:30 DIGOXIN [CHEM] Timed 06/17/16 Dinner 2 Gram Sodium Diet [DIET] Heart Healthy Diet [DIET] 06/18/16 07:30 BASIC METABOLIC PANEL,BMP [CHEM] DAILY CBC WITH AUTO DIFF [HEME] DAILY DIGOXIN [CHEM] Timed MAGNESIUM [CHEM] Routine 06/18/16 13:00 Digoxin [Lanoxin] 250 mcg PO DAILY@1300 - Plan Plan:: Assessment/Plan: Acute: Atrial Fibrillation with RVR, HR up to 150 with activity this am - On Metoprolol 100 mg po BID and Cardizem 180 po BID - Eliquis 5 mg po BID for stroke prophylaxis - Thyroid panel wnl - Lopressor 5mg IVP PRN for HR control - Discussed with Dr. Bangura; will add digoxin IVP Q 6 hrs x 4 doses- see orders then start PO dosing with dig level this evening and in am. Reviewed with patient need for better HR control but b/p is controlled now so digoxin is good next option; she is in agreement. - Follow up with cardiology after d/c; will reschedule with BARRY Crenshaw with [facility] sooner that 2 months (prior f/up appt) S/p Malignant Hypertension---resolved now - 146/120 mmHg on presentation, her fibit registered a BP reading of 226/129 - BP Meds: Cozaar 50 mg po BID, Lasix 40 mg po daily and Aldactone 25 mg po daily Chronic: Gout AR Peripheral Edema Polycythemia Morbid Obesity--dietary consult for wt management Discussed possibility of sleep apnea with risk factors of obesity, afib and HTN ; recommend screening. Patient has spoken to PCP about this in the past. She is adamant that she would not have BRENDAN as "I do not snore". Reviewed with her other risk factors as above; strongly recommend screening for BRENDAN as outpatient. We had long discussion re: diet, exercise, wt loss today; recommend wt loss- she is in agreement and seems amendable to work on this after discharge. Encourage to ambulate TID-QID, so we can cont to see HR response with activity Will arrange f/up with PCP within days of discharge and with [employer] within a few weeks of discharge for follow up. Likely discharge in next 48 hours pending HR control.
[2016-06-17] MEDS: Magnesium Oxide 400 MG Tab PO SCH (14:08)
[2016-06-17] MEDS ORDERED: Sodium Chloride 0.65% Nasal Spray 45 ML Bottle NAS PRN (15:55)
[2016-06-17] MEDS ORDERED: Digoxin 500 MCG/2 ML Amp IVPUSH SCH ×2 (19:00→21:03)
[2016-06-18] MEDS: Acetaminophen/HYDROcodone 325-5 MG Tab PO PRN (01:56)
[2016-06-18] MEDS ORDERED: Digoxin 500 MCG/2 ML Amp IVPUSH SCH (02:00)
[2016-06-18] MEDS: Metoprolol Succinate 50 MG Tab.ER PO SCH (08:51)
[2016-06-18] MEDS: Furosemide 40 MG Tab PO SCH (08:51)
[2016-06-18] MEDS: Spironolactone 25 MG Tab PO SCH (08:51)
[2016-06-18] MEDS: Ascorbic Acid 500 MG Tab PO SCH (08:51)
[2016-06-18] MEDS: Apixaban 5 MG Tab PO SCH ×2 (08:51→21:37)
[2016-06-18] MEDS: Losartan 100 MG Tab PO SCH ×2 (08:52→21:37)
[2016-06-18] MEDS: Magnesium Oxide 400 MG Tab PO SCH (08:52)
[2016-06-18] MEDS: Diltiazem 180 MG Cap.CD PO SCH ×2 (08:52→21:38)
[2016-06-18] MEDS: Allopurinol 300 MG Tab PO SCH (08:53)
[2016-06-18] MEDS ORDERED: Digoxin 500 MCG/2 ML Amp IVPUSH ONE (09:15)
--- NOTE | 2016-06-18 10:34 | PCM.PN ---
<Marly Leos M - Last Filed: 06/18/16 14:04> - General Info Date of Service: 06/18/16 Admission Dx/Problem (Free Text): Admission Diagnosis/Problem Admission Diagnosis/Problem Atrial fibrillation Patient seen today. She was started on IV digoxin yesterday, loading dose and Q6 hours. HR have been 80's this morning. She slept ok last night, good appetite , no n/v/d. Denies CP, SOB, [place]. She is fatigued; continues to be fatigued. She feels nauseous this morning. Functional Status: Reports: tolerating diet, ambulating, urinating. Denies: new symptoms - Review of Systems General: Reports: Fatigue HEENT: Reports: no symptoms Pulmonary: Reports: no symptoms Cardiovascular: Reports: No Symptoms. Denies: Chest Pain, Palpitations, Dyspnea on Exertion Gastrointestinal: Reports: Nausea. Denies: Diarrhea, Vomiting Genitourinary: Reports: no symptoms Musculoskeletal: Reports: no symptoms Skin: Reports: no symptoms Neurological: Reports: No Symptoms Psychiatric: Reports: no symptoms - Patient Data Vitals - most recent: Last Vital Signs Temp 98.1 F 06/18/16 08:14 Pulse 77 06/18/16 09:51 Resp 20 06/18/16 08:14 BP 117/65 06/18/16 08:52 Pulse Ox 92 L 06/18/16 08:14 Weight - most recent: 139.298 kg I&O - last 24 hours: Intake & Output 06/17/16 06/18/16 06/18/16 22:59 06:59 14:59 Intake Total 1235 1100 Output Total 1200 1200 Balance 35 -100 Lab Results last 24 hrs: Laboratory Results - last 24 hr 06/17/16 06/18/16 06/18/16 Range/Units 21:08 07:35 07:35 WBC 5.62 (3.98-10.04) K/mm3 RBC 5.69 H (3.98-5.22) M/mm3 Hgb 17.1 H (11.2-15.7) gm/L Hct 50.6 H (34.1-44.9) % MCV 88.9 (79.4-94.8) fl MCH 30.1 (25.6-32.2) pg MCHC 33.8 (32.2-35.5) g/dl RDW Std Deviation 46.5 H (36.4-46.3) fL Plt Count 153 L (182-369) K/mm3 MPV 12.6 H (9.4-12.3) fl Neut % (Auto) 56.5 (34.0-71.1) % Lymph % (Auto) 32.9 (19.3-51.7) % [place] % (Auto) 8.9 (4.7-12.5) % Eos % (Auto) 1.1 (0.7-5.8) Baso % (Auto) 0.4 (0.1-1.2) % Neut # (Auto) 3.18 (1.56-6.13) K/mm3 Lymph # (Auto) 1.85 (1.18-3.74) K/mm3 [place] # (Auto) 0.50 H (0.24-0.36) K/mm3 Eos # (Auto) 0.06 (0.04-0.36) K/mm3 Baso # (Auto) 0.02 (0.01-0.08) K/mm3 Sodium 137 (136-145) mEq/L Potassium 4.5 (3.5-5.1) mEq/L Chloride 102 (98-107) mEq/L Carbon Dioxide 27 (21-32) mEq/L Anion Gap 12.5 (5-15) BUN 35 H (7-18) mg/dL Creatinine 1.2 H (0.55-1.02) mg/dL Est Cr Clr Drug Dosing 51.45 mL/min Estimated GFR (MDRD) 46 (>60) mL/min BUN/Creatinine Ratio 29.2 H (14-18) Glucose 133 H (80-115) mg/dL Calcium 8.7 (8.5-10.1) mg/dL Magnesium 1.8 (1.8-2.4) mg/dl Digoxin 3.1 H (0.9-2.0) ng/mL Med Orders - Current: Current Medications Acetaminophen (Tylenol) 650 mg PO Q4H PRN PRN Reason: Pain (Mild 1-3)/fever Acetaminophen/Hydrocodone Bitart ([place] 325-5 Mg) 1 tab PO Q4H PRN PRN Reason: Pain (moderate 4-6) Last Admin: 06/18/16 01:56 Dose: 1 tab Allopurinol (Zyloprim) 150 mg PO DAILY [facility] Last Admin: 06/18/16 08:53 Dose: 150 mg Apixaban (Eliquis) 5 mg PO BID [facility] Last Admin: 06/18/16 08:51 Dose: 5 mg Ascorbic Acid (Vitamin C) 500 mg PO DAILY [facility] Last Admin: 06/18/16 08:51 Dose: 500 mg Benzocaine/Menthol (Cepacol Sore Throat) 1 lozenge MUCMEM 5XDAY PRN PRN Reason: Sore Throat Last Admin: 06/16/16 18:09 Dose: 1 lozenge Bisacodyl (Dulcolax) 5 mg PO DAILY PRN PRN Reason: Constipation Digoxin (Lanoxin) 250 mcg PO DAILY@1300 [facility] Diltiazem HCl (Cardizem Cd) 180 mg PO BID [facility] Last Admin: 06/18/16 08:52 Dose: 180 mg Furosemide (Lasix) 40 mg PO DAILY [facility] Last Admin: 06/18/16 08:51 Dose: 40 mg Hydralazine HCl (Apresoline) 20 mg IVPUSH Q4H PRN PRN Reason: Hypertension Hydromorphone HCl (Dilaudid) 0.25 mg IVPUSH Q2H PRN PRN Reason: Pain (severe 7-10) Promethazine HCl 12.5 mg/ (Sodium Chloride) 50.5 mls @ 100 mls/hr IV Q6H PRN PRN Reason: Nausea/Vomiting Lorazepam (Ativan) 1 mg IV Q6H PRN PRN Reason: Nausea/Vomiting Losartan Potassium (Cozaar) 50 mg PO BID [facility] Last Admin: 06/18/16 08:52 Dose: 50 mg Magnesium Oxide (Magnesium Oxide) 400 mg PO DAILY [facility] Last Admin: 06/18/16 08:52 Dose: 400 mg Metoprolol Succinate (Toprol Xl) 100 mg PO DAILY [facility] Last Admin: 06/18/16 08:51 Dose: 100 mg Metoprolol Tartrate (Lopressor) 5 mg IVPUSH Q4H PRN PRN Reason: Tachycardia Last Admin: 06/16/16 11:12 Dose: 5 mg Ondansetron HCl (Zofran) 4 mg IV Q6H PRN PRN Reason: Nausea/Vomiting Polyethylene Glycol (Miralax) 17 gm PO DAILY PRN PRN Reason: Constipation Senna/Docusate Sodium (Senna Plus) 1 tab PO BID PRN PRN Reason: Constipation Sodium Chloride (Vaiva Vo Nasal [place]) 0 ml SUSANNE Q2H PRN PRN Reason: Dryness Spironolactone (Aldactone) 25 mg PO DAILY [facility] Last Admin: 06/18/16 08:51 Dose: 25 mg Temazepam (Restoril) 30 mg PO BEDTIME PRN PRN Reason: Sleep Discontinued Medications Albuterol/Ipratropium (Duoneb 3.0-0.5 Mg/3 Ml) 3 ml NEB Q4H PRN PRN Reason: Shortness Of Breath/wheezing Clonidine HCl (Catapres) 0.1 mg PO Q8H [facility] Last Admin: 06/15/16 12:53 Dose: 0.1 mg Digoxin (Lanoxin) 500 mcg IVPUSH ONETIME ONE Stop: 06/17/16 13:01 Last Admin: 06/17/16 12:41 Dose: 500 mcg Digoxin (Lanoxin) 250 mcg IVPUSH Q6H [facility] Stop: 06/18/16 07:01 Last Admin: 06/17/16 20:08 Dose: 250 mcg Digoxin (Lanoxin) 250 mcg IVPUSH Q6H [facility] Stop: 06/18/16 03:03 Last Admin: 06/17/16 22:39 Dose: Not Given Digoxin (Lanoxin) 250 mcg IVPUSH Q6H [facility] Stop: 06/18/16 02:01 Last Admin: 06/18/16 02:55 Dose: Not Given Digoxin (Lanoxin) 250 mcg IVPUSH ONETIME ONE Stop: 06/18/16 09:16 Last Admin: 06/18/16 09:51 Dose: 250 mcg Diltiazem HCl (Diltiazem) 10 mg IVPUSH ONETIME ONE Stop: 06/14/16 17:28 Last Admin: 06/14/16 17:37 Dose: 10 mg Diltiazem HCl (Cardizem Cd) 180 mg PO DAILY [facility] Diltiazem HCl (Cardizem Cd) 180 mg PO DAILY [facility] Diltiazem HCl (Cardizem Cd) 180 mg PO DAILY [facility] Last Admin: 06/16/16 09:23 Dose: 180 mg Furosemide (Lasix) 40 mg PO DAILY [facility] Last Admin: 06/16/16 09:24 Dose: 40 mg Hydromorphone HCl (Dilaudid) 0.25 mg IVPUSH Q2H PRN PRN Reason: Pain (severe 7-10) Diltiazem HCl 100 mg/ Sodium (Chloride) 100 mls @ 10 mls/hr IV ASDIRECTED [facility] PRN Reason: 10 MG/HR Last Admin: 06/14/16 17:45 Dose: 10 mg/hr, 10 mls/hr Sodium Chloride (Normal Saline) 1,000 mls @ 100 mls/hr IV ASDIRECTED [facility] Last Admin: 06/15/16 02:53 Dose: 100 mls/hr Diltiazem HCl 100 mg/ Sodium (Chloride) 100 mls @ 15 mls/hr IV ASDIRECTED [facility] PRN Reason: 15 MG/HR Last Infusion: 06/15/16 05:40 Dose: 0 mg/hr, 0 mls/hr Magnesium Sulfate 2 gm/ Premix 50 mls @ 50 mls/hr IV ONETIME ONE Stop: 06/14/16 23:59 Last Admin: 06/14/16 23:09 Dose: 50 mls/hr Magnesium Sulfate 2 gm/ Premix 50 mls @ 25 mls/hr IV ONETIME ONE Stop: 06/16/16 11:29 Last Admin: 06/16/16 09:22 Dose: 25 mls/hr Loratadine (Claritin) 10 mg PO DAILY [facility] Last Admin: 06/14/16 21:01 Dose: Not Given Magnesium Sulfate (Pharmacy To Dose - Magnesium Replacement) 0 dose .XX ASDIRECTED PRN PRN Reason: RX DOSE Potassium Chloride (Pharmacy To Dose - Potassium Replacement) 0 dose .XX ASDIRECTED PRN PRN Reason: RX DOSE Temazepam (Restoril) 30 mg PO BEDTIME PRN PRN Reason: Sleep - Exam Quality Assessment: DVT prophylaxis General: alert, oriented, cooperative, no acute distress HEENT: Pupils equal, Pupils reactive, EOMI, Mucous membr. moist/pink Neck: supple Lungs: Clear to auscultation, Normal respiratory effort Cardiovascular: Irregular Rhythm Abdomen: bowel sounds present, soft, no tenderness, no distension (Female) Exam: Deferred Extremities: edema (trace to 1+ bilat) Neurological: no new focal deficit Psy/Mental Status: alert, normal affect, normal mood - Problem List & Annotations (1) Chronic atrial fibrillation with rapid ventricular response SNOMED Code(s): 566860641, 647541653145744 Code(s): I48.2 - CHRONIC ATRIAL FIBRILLATION Status: Acute Priority: High Current Visit: Yes (2) Uncontrolled hypertension SNOMED Code(s): 03920403 Code(s): I10 - ESSENTIAL (PRIMARY) HYPERTENSION Status: Acute Priority: High Current Visit: Yes (3) Obesity SNOMED Code(s): 613347805 Code(s): E66.9 - OBESITY, UNSPECIFIED Status: Chronic Priority: High Current Visit: Yes Qualifiers: Obesity type: due to excess calories Obesity severity: morbid Qualified Code(s): E66.01 - Morbid (severe) obesity due to excess calories (4) Nausea SNOMED Code(s): 281779457 Code(s): R11.0 - NAUSEA Status: Acute Priority: High Current Visit: Yes - Problem List Review Problem List Initiated/Reviewed/Updated: Yes - My Orders Last 24 Hours: My Active Orders 06/17/16 13:15 Magnesium Oxide 400 mg PO DAILY 06/17/16 13:19 Consult to Criminal Research Specialist [CONS] Routine 06/17/16 15:55 Sodium Chloride 0.65% [Vaiva Vo Nasal [place]] 0 ml SUSANNE Q2H PRN 06/17/16 Dinner 2 Gram Sodium Diet [DIET] Heart Healthy Diet [DIET] 06/18/16 13:00 Digoxin [Lanoxin] 250 mcg PO DAILY@1300 - Plan Plan:: Assessment/Plan: Acute: Atrial Fibrillation with RVR, HR up to 150 with activity - On Metoprolol 100 mg po BID and Cardizem 180 po BID - Eliquis 5 mg po BID for stroke prophylaxis - Thyroid panel wnl - Lopressor 5mg IVP PRN for HR control - Discussed with Dr. Bangura; will add digoxin IVP Q 6 hrs x 4 doses- see orders. Last IV dose was held last night, will be given this morning then start PO dosing with dig tomorrow. Reviewed with patient need for better HR control but b/p is controlled now so digoxin is good next option; she is in agreement. Will check dig level in am - Follow up with cardiology after d/c; will reschedule with BARRY Crenshaw with [facility] sooner that 2 months (prior f/up appt) S/p Malignant Hypertension---resolved now - 146/120 mmHg on presentation, her fibit registered a BP reading of 226/129 - BP Meds: Cozaar 50 mg po BID, Lasix 40 mg po daily and Aldactone 25 mg po daily--cont with home meds Nausea this morning -antiemetic PRN -Dig level in am Chronic: Gout AR Peripheral Edema Polycythemia Morbid Obesity--dietary consult for wt management Discussed possibility of sleep apnea with risk factors of obesity, afib and HTN ; recommend screening. Patient has spoken to PCP about this in the past. She is adamant that she would not have BRENDAN as "I do not snore". Reviewed with her other risk factors as above; strongly recommend screening for BRENDAN as outpatient. We had long discussion re: diet, exercise, wt loss today; recommend wt loss- she is in agreement and seems amendable to work on this after discharge. Encourage to ambulate TID-QID, so we can cont to see HR response with activity Will arrange f/up with PCP within days of discharge and with [facility] within a few weeks of discharge for follow up. Likely discharge in next 24-48 hours pending HR control. <Elisa Bangura M - Last Filed: 06/18/16 14:57> - Patient Data Vitals - most recent: Last Vital Signs Temp 36.7 C 06/18/16 14:29 Pulse 67 06/18/16 14:29 Resp 20 06/18/16 14:29 BP 123/57 L 06/18/16 14:29 Pulse Ox 99 06/18/16 14:29 I&O - last 24 hours: Intake & Output 06/17/16 06/18/16 06/18/16 22:59 06:59 14:59 Intake Total 1235 1100 330 Output Total 1200 1200 Balance 35 -100 330 Lab Results last 24 hrs: Laboratory Results - last 24 hr 06/17/16 06/18/16 06/18/16 Range/Units 21:08 07:35 07:35 WBC 5.62 (3.98-10.04) K/mm3 RBC 5.69 H (3.98-5.22) M/mm3 Hgb 17.1 H (11.2-15.7) gm/L Hct 50.6 H (34.1-44.9) % MCV 88.9 (79.4-94.8) fl MCH 30.1 (25.6-32.2) pg MCHC 33.8 (32.2-35.5) g/dl RDW Std Deviation 46.5 H (36.4-46.3) fL Plt Count 153 L (182-369) K/mm3 MPV 12.6 H (9.4-12.3) fl Neut % (Auto) 56.5 (34.0-71.1) % Lymph % (Auto) 32.9 (19.3-51.7) % [place] % (Auto) 8.9 (4.7-12.5) % Eos % (Auto) 1.1 (0.7-5.8) Baso % (Auto) 0.4 (0.1-1.2) % Neut # (Auto) 3.18 (1.56-6.13) K/mm3 Lymph # (Auto) 1.85 (1.18-3.74) K/mm3 [place] # (Auto) 0.50 H (0.24-0.36) K/mm3 Eos # (Auto) 0.06 (0.04-0.36) K/mm3 Baso # (Auto) 0.02 (0.01-0.08) K/mm3 Sodium 137 (136-145) mEq/L Potassium 4.5 (3.5-5.1) mEq/L Chloride 102 (98-107) mEq/L Carbon Dioxide 27 (21-32) mEq/L Anion Gap 12.5 (5-15) BUN 35 H (7-18) mg/dL Creatinine 1.2 H (0.55-1.02) mg/dL Est Cr Clr Drug Dosing 51.45 mL/min Estimated GFR (MDRD) 46 (>60) mL/min BUN/Creatinine Ratio 29.2 H (14-18) Glucose 133 H (80-115) mg/dL Calcium 8.7 (8.5-10.1) mg/dL Magnesium 1.8 (1.8-2.4) mg/dl Digoxin 3.1 H (0.9-2.0) ng/mL Med Orders - Current: Current Medications Acetaminophen (Tylenol) 650 mg PO Q4H PRN PRN Reason: Pain (Mild 1-3)/fever Acetaminophen/Hydrocodone Bitart ([place] 325-5 Mg) 1 tab PO Q4H PRN PRN Reason: Pain (moderate 4-6) Last Admin: 06/18/16 01:56 Dose: 1 tab Allopurinol (Zyloprim) 150 mg PO DAILY [facility] Last Admin: 06/18/16 08:53 Dose: 150 mg Apixaban (Eliquis) 5 mg PO BID [facility] Last Admin: 06/18/16 08:51 Dose: 5 mg Ascorbic Acid (Vitamin C) 500 mg PO DAILY [facility] Last Admin: 06/18/16 08:51 Dose: 500 mg Benzocaine/Menthol (Cepacol Sore Throat) 1 lozenge MUCMEM 5XDAY PRN PRN Reason: Sore Throat Last Admin: 06/16/16 18:09 Dose: 1 lozenge Bisacodyl (Dulcolax) 5 mg PO DAILY PRN PRN Reason: Constipation Digoxin (Lanoxin) 250 mcg PO DAILY@1300 [facility] Last Admin: 06/18/16 13:03 Dose: 250 mcg Diltiazem HCl (Cardizem Cd) 180 mg PO BID [facility] Last Admin: 06/18/16 08:52 Dose: 180 mg Furosemide (Lasix) 40 mg PO DAILY [facility] Last Admin: 06/18/16 08:51 Dose: 40 mg Hydralazine HCl (Apresoline) 20 mg IVPUSH Q4H PRN PRN Reason: Hypertension Hydromorphone HCl (Dilaudid) 0.25 mg IVPUSH Q2H PRN PRN Reason: Pain (severe 7-10) Promethazine HCl 12.5 mg/ (Sodium Chloride) 50.5 mls @ 100 mls/hr IV Q6H PRN PRN Reason: Nausea/Vomiting Lorazepam (Ativan) 1 mg IV Q6H PRN PRN Reason: Nausea/Vomiting Losartan Potassium (Cozaar) 50 mg PO BID [facility] Last Admin: 06/18/16 08:52 Dose: 50 mg Magnesium Oxide (Magnesium Oxide) 400 mg PO DAILY [facility] Last Admin: 06/18/16 08:52 Dose: 400 mg Metoprolol Succinate (Toprol Xl) 100 mg PO DAILY [facility] Last Admin: 06/18/16 08:51 Dose: 100 mg Metoprolol Tartrate (Lopressor) 5 mg IVPUSH Q4H PRN PRN Reason: Tachycardia Last Admin: 06/16/16 11:12 Dose: 5 mg Ondansetron HCl (Zofran) 4 mg IV Q6H PRN PRN Reason: Nausea/Vomiting Polyethylene Glycol (Miralax) 17 gm PO DAILY PRN PRN Reason: Constipation Senna/Docusate Sodium (Senna Plus) 1 tab PO BID PRN PRN Reason: Constipation Sodium Chloride (Vaiva Vo Nasal [place]) 0 ml SUSANNE Q2H PRN PRN Reason: Dryness Spironolactone (Aldactone) 25 mg PO DAILY [facility] Last Admin: 06/18/16 08:51 Dose: 25 mg Temazepam (Restoril) 30 mg PO BEDTIME PRN PRN Reason: Sleep Discontinued Medications Albuterol/Ipratropium (Duoneb 3.0-0.5 Mg/3 Ml) 3 ml NEB Q4H PRN PRN Reason: Shortness Of Breath/wheezing Clonidine HCl (Catapres) 0.1 mg PO Q8H [facility] Last Admin: 06/15/16 12:53 Dose: 0.1 mg Digoxin (Lanoxin) 500 mcg IVPUSH ONETIME ONE Stop: 06/17/16 13:01 Last Admin: 06/17/16 12:41 Dose: 500 mcg Digoxin (Lanoxin) 250 mcg IVPUSH Q6H [facility] Stop: 06/18/16 07:01 Last Admin: 06/17/16 20:08 Dose: 250 mcg Digoxin (Lanoxin) 250 mcg IVPUSH Q6H [facility] Stop: 06/18/16 03:03 Last Admin: 06/17/16 22:39 Dose: Not Given Digoxin (Lanoxin) 250 mcg IVPUSH Q6H [facility] Stop: 06/18/16 02:01 Last Admin: 06/18/16 02:55 Dose: Not Given Digoxin (Lanoxin) 250 mcg IVPUSH ONETIME ONE Stop: 06/18/16 09:16 Last Admin: 06/18/16 09:51 Dose: 250 mcg Diltiazem HCl (Diltiazem) 10 mg IVPUSH ONETIME ONE Stop: 06/14/16 17:28 Last Admin: 06/14/16 17:37 Dose: 10 mg Diltiazem HCl (Cardizem Cd) 180 mg PO DAILY [facility] Diltiazem HCl (Cardizem Cd) 180 mg PO DAILY [facility] Diltiazem HCl (Cardizem Cd) 180 mg PO DAILY [facility] Last Admin: 06/16/16 09:23 Dose: 180 mg Furosemide (Lasix) 40 mg PO DAILY [facility] Last Admin: 06/16/16 09:24 Dose: 40 mg Hydromorphone HCl (Dilaudid) 0.25 mg IVPUSH Q2H PRN PRN Reason: Pain (severe 7-10) Diltiazem HCl 100 mg/ Sodium (Chloride) 100 mls @ 10 mls/hr IV ASDIRECTED [facility] PRN Reason: 10 MG/HR Last Admin: 06/14/16 17:45 Dose: 10 mg/hr, 10 mls/hr Sodium Chloride (Normal Saline) 1,000 mls @ 100 mls/hr IV ASDIRECTED [facility] Last Admin: 06/15/16 02:53 Dose: 100 mls/hr Diltiazem HCl 100 mg/ Sodium (Chloride) 100 mls @ 15 mls/hr IV ASDIRECTED [facility] PRN Reason: 15 MG/HR Last Infusion: 06/15/16 05:40 Dose: 0 mg/hr, 0 mls/hr Magnesium Sulfate 2 gm/ Premix 50 mls @ 50 mls/hr IV ONETIME ONE Stop: 06/14/16 23:59 Last Admin: 06/14/16 23:09 Dose: 50 mls/hr Magnesium Sulfate 2 gm/ Premix 50 mls @ 25 mls/hr IV ONETIME ONE Stop: 06/16/16 11:29 Last Admin: 06/16/16 09:22 Dose: 25 mls/hr Loratadine (Claritin) 10 mg PO DAILY [facility] Last Admin: 06/14/16 21:01 Dose: Not Given Magnesium Sulfate (Pharmacy To Dose - Magnesium Replacement) 0 dose .XX ASDIRECTED PRN PRN Reason: RX DOSE Potassium Chloride (Pharmacy To Dose - Potassium Replacement) 0 dose .XX ASDIRECTED PRN PRN Reason: RX DOSE Temazepam (Restoril) 30 mg PO BEDTIME PRN PRN Reason: Sleep - Plan Plan:: Digoxin added to improve rate control with multiple AV gagandeep blockers; has been noncompliant only taking Betapace once daily. Thus after recent cardiology visit, medication adjustments were made.
[2016-06-18] MEDS ORDERED: Digoxin 250 MCG Tab PO SCH (13:00)
[2016-06-19] MEDS: Benzocaine/Cetylpyridinium/Menthol Lozenge MUCMEM PRN ×2 (01:39→09:06)
[2016-06-19] MEDS: Acetaminophen/HYDROcodone 325-5 MG Tab PO PRN (05:19)
[2016-06-19 08:53] VITALS: BP 125/72
[2016-06-19] MEDS: Diltiazem 180 MG Cap.CD PO SCH (08:55)
[2016-06-19] MEDS: Ascorbic Acid 500 MG Tab PO SCH (08:55)
[2016-06-19] MEDS: Furosemide 40 MG Tab PO SCH (08:56)
[2016-06-19] MEDS: Metoprolol Succinate 50 MG Tab.ER PO SCH (08:56)
[2016-06-19] MEDS: Spironolactone 25 MG Tab PO SCH (08:56)
[2016-06-19] MEDS: Apixaban 5 MG Tab PO SCH (08:56)
[2016-06-19] MEDS: Magnesium Oxide 400 MG Tab PO SCH (08:57)
[2016-06-19] MEDS: Losartan 100 MG Tab PO SCH (08:57)
[2016-06-19] MEDS: Allopurinol 300 MG Tab PO SCH (08:58)
--- NOTE | 2016-06-19 13:30 | PCM.DCSUM1 ---
Discharge Summary - Hospital Course Free Text/Narrative:: 60 year old with history of A Fib, presented with A Fib with RVR at 150 BPM. Had adjustment of medication recently for BP control; required increase of non -dihydropyridine calcium channel misa as well as selective BB. Addition of digoxin after poor rate control with activity was documented on numerous occasions. Eluiquis was continued; the patient lastly had a mild sore throat when DCd and will use cepacol for relief. Has declined sleep study for BRENDAN. LOS>96 hours needed for frequent adjustment of rate control medication. Primary Dx A Fib with RVR Condition good Activity As tolerated Meds Digoxin 125 mcg daily, start 06/21/16 Cepacol throat lozenges as directed] Diltazem CD 180 mg BID Labs/Follow up BMP, digoxin level 06/21/16. Cardiology 2-4 weeks PCP, Cherelle Celis 1-2 weeks. - Discharge Data Discharge Date: 06/19/16 Discharge Disposition: Home, Self-Care 01 Condition: Good - Patient Summary/Data Consults: Consultations 06/14/16 20:20 Consult to Case Management [CONS] Routine Consult to Bed Setter [CONS] Routine OT Evaluation and Treatment [CONS] Routine PT Evaluation and Treatment [CONS] Routine 06/17/16 13:19 Consult to Tile [place] Marble Setter [CONS] Routine - Patient Instructions Diet: Heart Healthy Diet Activity: As Tolerated (`) Driving: May Drive Today Showering/Bathing: May Shower Notify Provider of: Increased Pain - Discharge Plan Prescriptions/Med Rec: Benzocaine/Cetylpyrd/Menthol [Cepacol Sore Throat] 1 lozenge MUCMEM 5XDAY PRN # 30 riley PRN Reason: Sore Throat Digoxin [Lanoxin] 125 mcg PO DAILY #30 tablet Diltiazem [Cardizem CD] 180 mg PO BID #60 cap.cd Home Medications: Home Meds Allopurinol [Zyloprim] 150 mg PO DAILY 01/31/15 [History] Fexofenadine HCl [Aller-Ease] 180 mg PO DAILY PRN 01/31/15 [History] Furosemide [Lasix] 40 mg PO DAILY 01/31/15 [History] Losartan [Cozaar] 50 mg PO BID 01/31/15 [History] Spironolactone [Aldactone] 25 mg PO DAILY 01/31/15 [History] Apixaban [Eliquis] 5 mg PO BID 06/14/16 [History] Metoprolol Succinate [Toprol XL] 100 tab PO DAILY 06/14/16 [History] Benzocaine/Cetylpyrd/Menthol [Cepacol Sore Throat] 1 lozenge MUCMEM 5XDAY PRN # 30 riley 06/19/16 [Rx] Digoxin [Lanoxin] 125 mcg PO DAILY #30 tablet 06/19/16 [Rx] Diltiazem [Cardizem CD] 180 mg PO BID #60 cap.cd 06/19/16 [Rx] Patient Handouts: Hypertension, [id number], Atrial Fibrillation, [id number] Forms: ED Department Discharge Referrals: Cherelle Eastman PA-C [Ordering Only Provider] - 06/17/16 2:30 pm (Please call to verify apt. time/date, if incorrect please follow up with Cherelle Eastman in 2-4 weeks by scheduling your own apt. At [facility] Appointment is in Central Standard Time.) Stan Guzman Jr, MD [Primary Care Provider] - (Please call and schedule an apt. with Dr. Guzman in one week. ) - Discharge Summary/Plan Comment DC Time >30 min.: No - General Info Date of Service: 06/14/16 Functional Status: Reports: tolerating diet, ambulating, urinating - Review of Systems General: Reports: No Symptoms HEENT: Reports: sore throat Pulmonary: Reports: no symptoms Cardiovascular: Reports: No Symptoms Gastrointestinal: Reports: No symptoms Genitourinary: Reports: no symptoms Musculoskeletal: Reports: no symptoms Skin: Reports: no symptoms Neurological: Reports: No Symptoms Psychiatric: Reports: no symptoms - Patient Data Vitals - Most Recent: Last Vital Signs Temp 36.4 C 06/19/16 08:50 Pulse 78 06/19/16 08:56 Resp 16 06/19/16 08:50 BP 125/72 06/19/16 08:57 Pulse Ox 94 L 06/19/16 08:50 Weight - Most Recent: 138.89 kg I&O - Last 24 hours: Intake & Output 06/18/16 06/19/16 06/19/16 22:59 06:59 14:59 Intake Total 1460 400 Output Total 1600 1500 Balance -140 -1100 Lab Results - Last 24 hrs: Laboratory Results - last 24 hr 06/19/16 06/19/16 Range/Units 06:08 06:08 WBC 5.43 (3.98-10.04) K/mm3 RBC 5.45 H (3.98-5.22) M/mm3 Hgb 16.5 H (11.2-15.7) gm/L Hct 48.8 H (34.1-44.9) % MCV 89.5 (79.4-94.8) fl MCH 30.3 (25.6-32.2) pg MCHC 33.8 (32.2-35.5) g/dl RDW Std Deviation 46.4 H (36.4-46.3) fL Plt Count 157 L (182-369) K/mm3 MPV 12.9 H (9.4-12.3) fl Neut % (Auto) 54.5 (34.0-71.1) % Lymph % (Auto) 33.5 (19.3-51.7) % [place] % (Auto) 9.6 (4.7-12.5) % Eos % (Auto) 1.3 (0.7-5.8) Baso % (Auto) 0.9 (0.1-1.2) % Neut # (Auto) 2.96 (1.56-6.13) K/mm3 Lymph # (Auto) 1.82 (1.18-3.74) K/mm3 [place] # (Auto) 0.52 H (0.24-0.36) K/mm3 Eos # (Auto) 0.07 (0.04-0.36) K/mm3 Baso # (Auto) 0.05 (0.01-0.08) K/mm3 Manual Slide Review Not Reportable Sodium 144 (136-145) mEq/L Potassium 4.6 (3.5-5.1) mEq/L Chloride 106 (98-107) mEq/L Carbon Dioxide 26 (21-32) mEq/L Anion Gap 16.6 H (5-15) BUN 35 H (7-18) mg/dL Creatinine 1.1 H (0.55-1.02) mg/dL Est Cr Clr Drug Dosing 56.13 mL/min Estimated GFR (MDRD) 50 (>60) mL/min BUN/Creatinine Ratio 31.8 H (14-18) Glucose 133 H (80-115) mg/dL Calcium 8.9 (8.5-10.1) mg/dL Magnesium 1.9 (1.8-2.4) mg/dl Digoxin 1.9 (0.9-2.0) ng/mL Med Orders - Current: Current Medications Acetaminophen (Tylenol) 650 mg PO Q4H PRN PRN Reason: Pain (Mild 1-3)/fever Acetaminophen/Hydrocodone Bitart ([place] 325-5 Mg) 1 tab PO Q4H PRN PRN Reason: Pain (moderate 4-6) Last Admin: 06/19/16 05:19 Dose: 1 tab Allopurinol (Zyloprim) 150 mg PO DAILY [facility] Last Admin: 06/19/16 08:58 Dose: 150 mg Apixaban (Eliquis) 5 mg PO BID [facility] Last Admin: 06/19/16 08:56 Dose: 5 mg Ascorbic Acid (Vitamin C) 500 mg PO DAILY [facility] Last Admin: 06/19/16 08:55 Dose: 500 mg Benzocaine/Menthol (Cepacol Sore Throat) 1 lozenge MUCMEM 5XDAY PRN PRN Reason: Sore Throat Last Admin: 06/19/16 09:06 Dose: 1 lozenge Bisacodyl (Dulcolax) 5 mg PO DAILY PRN PRN Reason: Constipation Digoxin (Lanoxin) 250 mcg PO DAILY@1300 [facility] Last Admin: 06/18/16 13:03 Dose: 250 mcg Diltiazem HCl (Cardizem Cd) 180 mg PO BID [facility] Last Admin: 06/19/16 08:55 Dose: 180 mg Furosemide (Lasix) 40 mg PO DAILY [facility] Last Admin: 06/19/16 08:56 Dose: 40 mg Hydralazine HCl (Apresoline) 20 mg IVPUSH Q4H PRN PRN Reason: Hypertension Hydromorphone HCl (Dilaudid) 0.25 mg IVPUSH Q2H PRN PRN Reason: Pain (severe 7-10) Promethazine HCl 12.5 mg/ (Sodium Chloride) 50.5 mls @ 100 mls/hr IV Q6H PRN PRN Reason: Nausea/Vomiting Lorazepam (Ativan) 1 mg IV Q6H PRN PRN Reason: Nausea/Vomiting Losartan Potassium (Cozaar) 50 mg PO BID [facility] Last Admin: 06/19/16 08:57 Dose: 50 mg Magnesium Oxide (Magnesium Oxide) 400 mg PO DAILY [facility] Last Admin: 06/19/16 08:57 Dose: 400 mg Metoprolol Succinate (Toprol Xl) 100 mg PO DAILY [facility] Last Admin: 06/19/16 08:56 Dose: 100 mg Metoprolol Tartrate (Lopressor) 5 mg IVPUSH Q4H PRN PRN Reason: Tachycardia Last Admin: 06/16/16 11:12 Dose: 5 mg Ondansetron HCl (Zofran) 4 mg IV Q6H PRN PRN Reason: Nausea/Vomiting Polyethylene Glycol (Miralax) 17 gm PO DAILY PRN PRN Reason: Constipation Senna/Docusate Sodium (Senna Plus) 1 tab PO BID PRN PRN Reason: Constipation Sodium Chloride ([place]land Nasal [place]) 0 ml SUSANNE Q2H PRN PRN Reason: Dryness Last Admin: 06/19/16 01:38 Dose: 2 spray Spironolactone (Aldactone) 25 mg PO DAILY [facility] Last Admin: 06/19/16 08:56 Dose: 25 mg Temazepam (Restoril) 30 mg PO BEDTIME PRN PRN Reason: Sleep Discontinued Medications Albuterol/Ipratropium (Duoneb 3.0-0.5 Mg/3 Ml) 3 ml NEB Q4H PRN PRN Reason: Shortness Of Breath/wheezing Clonidine HCl (Catapres) 0.1 mg PO Q8H [facility] Last Admin: 06/15/16 12:53 Dose: 0.1 mg Digoxin (Lanoxin) 500 mcg IVPUSH ONETIME ONE Stop: 06/17/16 13:01 Last Admin: 06/17/16 12:41 Dose: 500 mcg Digoxin (Lanoxin) 250 mcg IVPUSH Q6H [facility] Stop: 06/18/16 07:01 Last Admin: 06/17/16 20:08 Dose: 250 mcg Digoxin (Lanoxin) 250 mcg IVPUSH Q6H [facility] Stop: 06/18/16 03:03 Last Admin: 06/17/16 22:39 Dose: Not Given Digoxin (Lanoxin) 250 mcg IVPUSH Q6H [facility] Stop: 06/18/16 02:01 Last Admin: 06/18/16 02:55 Dose: Not Given Digoxin (Lanoxin) 250 mcg IVPUSH ONETIME ONE Stop: 06/18/16 09:16 Last Admin: 06/18/16 09:51 Dose: 250 mcg Diltiazem HCl (Diltiazem) 10 mg IVPUSH ONETIME ONE Stop: 06/14/16 17:28 Last Admin: 06/14/16 17:37 Dose: 10 mg Diltiazem HCl (Cardizem Cd) 180 mg PO DAILY [facility] Diltiazem HCl (Cardizem Cd) 180 mg PO DAILY [facility] Diltiazem HCl (Cardizem Cd) 180 mg PO DAILY [facility] Last Admin: 06/16/16 09:23 Dose: 180 mg Furosemide (Lasix) 40 mg PO DAILY [facility] Last Admin: 06/16/16 09:24 Dose: 40 mg Hydromorphone HCl (Dilaudid) 0.25 mg IVPUSH Q2H PRN PRN Reason: Pain (severe 7-10) Diltiazem HCl 100 mg/ Sodium (Chloride) 100 mls @ 10 mls/hr IV ASDIRECTED [facility] PRN Reason: 10 MG/HR Last Admin: 06/14/16 17:45 Dose: 10 mg/hr, 10 mls/hr Sodium Chloride (Normal Saline) 1,000 mls @ 100 mls/hr IV ASDIRECTED [facility] Last Admin: 06/15/16 02:53 Dose: 100 mls/hr Diltiazem HCl 100 mg/ Sodium (Chloride) 100 mls @ 15 mls/hr IV ASDIRECTED [facility] PRN Reason: 15 MG/HR Last Infusion: 06/15/16 05:40 Dose: 0 mg/hr, 0 mls/hr Magnesium Sulfate 2 gm/ Premix 50 mls @ 50 mls/hr IV ONETIME ONE Stop: 06/14/16 23:59 Last Admin: 06/14/16 23:09 Dose: 50 mls/hr Magnesium Sulfate 2 gm/ Premix 50 mls @ 25 mls/hr IV ONETIME ONE Stop: 06/16/16 11:29 Last Admin: 06/16/16 09:22 Dose: 25 mls/hr Loratadine (Claritin) 10 mg PO DAILY [facility] Last Admin: 06/14/16 21:01 Dose: Not Given Magnesium Sulfate (Pharmacy To Dose - Magnesium Replacement) 0 dose .XX ASDIRECTED PRN PRN Reason: RX DOSE Potassium Chloride (Pharmacy To Dose - Potassium Replacement) 0 dose .XX ASDIRECTED PRN PRN Reason: RX DOSE Temazepam (Restoril) 30 mg PO BEDTIME PRN PRN Reason: Sleep - Exam Quality Assessment: Reports: DVT prophylaxis General: Reports: alert, oriented, cooperative, no acute distress HEENT: Reports: Pupils equal, Pupils reactive, EOMI Neck: Reports: supple, trachea midline Lungs: Reports: Normal respiratory effort Cardiovascular: Reports: Regular Rate, Irregular Rhythm Abdomen: Reports: bowel sounds present, soft, no tenderness, no distension (Female) Exam: Deferred Rectal (Female) Exam: Deferred Back Exam: Reports: normal inspection Extremities: Reports: no edema, normal pulses Skin: Reports: warm Neurological: Reports: no new focal deficit, normal gait, normal speech Psy/Mental Status: Reports: alert, normal affect, normal mood *Q Meaningful Use (DIS) - VTE *Q VTE Criteria *Q: - Stroke *Q Stroke Criteria *Q: - AMI *Q AMI Criteria *Q:
== END 2016-06-19 12:24 | disposition home or self-care (01) | DRG 310 ==
LOC: JD.ED 17:00 → JD.ICU 19:28 → JD.MS 06-15 10:06 → JD.ICU 06-15 10:37
PROVIDERS: ADMIT Internal Medicine; ATTEND Internal Medicine
DX: I48.0 Paroxysmal atrial fibrillation (principal); I11.0 Hypertensive heart disease with heart failure; I50.9 Heart failure, unspecified; Z79.01 Long term (current) use of anticoagulants; Z79.899 Other long term (current) drug therapy; M10.9 Gout, unspecified; I35.1 Nonrheumatic aortic (valve) insufficiency; R60.9 Edema, unspecified; D75.1 Secondary polycythemia; E66.01 Morbid (severe) obesity due to excess calories; J02.9 Acute pharyngitis, unspecified
CPT/HCPCS: 36415; 71010; 71010-26; 80048; 80053; 80162; 82553; 83735; 83880; 84439; 84443; 84484; 85025; 93005; 96365; 96366; 97161-GP; 97165-GO; 99222; 99232; 99285; 99285-25; A9270-GY; J1160; J3475; J3490; J7030; J7040

== ENCOUNTER 2018-11-27 21:11 | Emergency (ER) | payer OTHER ==
[2018-11-27 21:29] VITALS: BP 162/88
[2018-11-27] MEDS ORDERED: Sodium Chloride 0.9% 10 ML Syringe FLUSH PRN (21:42)
[2018-11-27] MEDS ORDERED: Sodium Chloride 0.9% 1,000 ML IV ONE (21:42)
--- NOTE | 2018-11-27 21:43 | EDM.PDOC ---
<Daljit Feliz O - Last Filed: 11/27/18 23:27> ED HPI GENERAL MEDICAL PROBLEM - General Chief Complaint: Fever Stated Complaint: chills fever Time Seen by Provider: 11/27/18 21:42 Source of Information: Reports: Patient History Limitations: Reports: No Limitations - History of Present Illness INITIAL COMMENTS - FREE TEXT/NARRATIVE: Patient is a 62-year-old female who presents to the ED complaining of general malaise, fatigue, fever, chills, and generalized body aches. Patient states symptoms came on this past Tuesday at approximately 1500 hrs. Patient's been experiencing intermittent chills and fevers controlled with ibuprofen and fluids. Symptoms subsided yesterday only to return this evening at 1930. This evening patient started be chilled took some more ibuprofen to feeling feverish trace water and opted to come into the ED for further evaluation. She denies any headache, stiff necks, upper respiratory symptoms, sore throat, chest pain, shows breath, abdominal pain, dysuria, diarrhea, nausea, cough, PND, orthopnea, increased edema to lower extremities, or any additional complaints. Patient states she's had a low-carb diet for the last 2 weeks. Patient has lost approximately 12 pounds. She carries a history of age or fibrillation and is on Eliquis, Lasix, Cozaar, Aldactone, Toprol, digoxin, and Cardizem. - Related Data Allergies Allergy/AdvReac Type Severity Reaction Status Date / Time carisoprodol [From Soma] Allergy Hives Verified 11/27/18 21:29 ketorolac tromethamine Allergy Hives Verified 11/27/18 21:29 [From Toradol] Home Meds: Home Meds Allopurinol [Zyloprim] 150 mg PO DAILY 01/31/15 [History] Fexofenadine HCl [Aller-Ease] 180 mg PO DAILY PRN 01/31/15 [History] Furosemide [Lasix] 40 mg PO DAILY 01/31/15 [History] Spironolactone [Aldactone] 12.5 mg PO DAILY 01/31/15 [History] Apixaban [Eliquis] 5 mg PO BID 06/14/16 [History] Benzocaine/Cetylpyrd/Menthol [Cepacol Sore Throat] 1 lozenge MUCMEM 5XDAY PRN # 30 riley 06/19/16 [Rx] Amiodarone [Cordarone] 200 mg PO DAILY 11/27/18 [History] Carvedilol [Coreg] 12.5 mg PO BID 11/27/18 [History] Insulin Detemir [Levemir Flextouch] 20 unit SUBCUT BID 11/27/18 [History] amLODIPine [Norvasc] 5 mg PO DAILY 11/27/18 [History] Past Medical History Cardiovascular History: Reports: Afib, Hypertension Other Cardiovascular History: cardioversion, Respiratory History: Reports: PE 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 Endocrine/Metabolic History: Reports: Diabetes, Type II Hematologic History: Reports: Other (See Below) Other Hematologic History: high Hgb - Past Surgical History HEENT Surgical History: Reports: Tonsillectomy Female Surgical History: Reports: Section, Hysterectomy Social & Family History - Family History Family Medical History: Noncontributory - Tobacco Use Smoking Status *Q: Never Smoker - Caffeine Use Caffeine Use: Reports: Coffee - Living Situation & Occupation Living situation: Reports: Occupation: Employed ED ROS GENERAL - Review of Systems Review Of Systems: ROS reveals no pertinent complaints other than HPI. ED EXAM, GENERAL - Physical Exam Exam: See Below Exam Limited By: No Limitations General Appearance: Alert, WD/WN, No Apparent Distress Eye Exam: Bilateral Eye: Normal Inspection, PERRL Ears: Hearing Grossly Normal Nose: Normal Inspection Throat/Mouth: Normal Inspection, Normal Oropharynx, Normal Voice, No Airway Compromise Head: Atraumatic, Normocephalic Neck: Normal Inspection, Supple, Non-Tender Respiratory/Chest: No Respiratory Distress, Lungs Clear, Normal Breath Sounds, No Accessory Muscle Use, Chest Non-Tender Cardiovascular: Normal Peripheral Pulses, Tachycardia, Irregularly Irregular Peripheral Pulses: 2+: Radial (R) GI/Abdominal: Normal Bowel Sounds, Soft, Non-Tender, No Organomegaly, No Distention Back Exam: Normal Inspection. No: CVA Tenderness (L), CVA Tenderness (R) Extremities: Normal Inspection, Normal Range of Motion, Non-Tender, Pedal Edema (trace bilateral) Neurological: Alert, Oriented, CN II-XII Intact, Normal Cognition, No Motor/ Sensory Deficits Psychiatric: Normal Affect, Normal Mood Skin Exam: Warm, Dry, Intact, Normal Color, No Rash Course - Vital Signs Last Recorded V/S: Last Vital Signs Temp 98.1 F 11/27/18 21:20 Pulse 113 H 11/27/18 21:20 Resp 20 11/27/18 21:20 BP 162/88 H 11/27/18 21:20 Pulse Ox 95 11/27/18 21:20 - Orders/Labs/Meds Orders: Active Orders 24 hr Category Date Time Status EKG 12 Lead [EKG Documentation Completion] [RC] STAT Care 11/27/18 21:43 Active Peripheral IV Care [RC] . DIRECTED Care 11/27/18 21:42 Active CULTURE BLOOD [BC] Stat Lab 11/27/18 22:00 Results CULTURE BLOOD [BC] Stat Lab 11/27/18 22:10 Results Blood Culture x2 Reflex Set [OM.PC] Stat Oth 11/27/18 21:43 Ordered Peripheral IV Insertion Adult [OM.PC] Routine Oth 11/27/18 21:42 Ordered Labs: Laboratory Tests 11/27/18 11/27/18 11/27/18 Range/Units 09:50 21:40 21:50 WBC 7.93 (3.98-10.04) K/mm3 RBC 5.21 (3.98-5.22) M/mm3 Hgb 15.7 (11.2-15.7) gm/L Hct 47.1 H (34.1-44.9) % MCV 90.4 (79.4-94.8) fl MCH 30.1 (25.6-32.2) pg MCHC 33.3 (32.2-35.5) g/dl RDW Std Deviation 47.1 H (36.4-46.3) fL Plt Count 166 L (182-369) K/mm3 MPV 12.5 H (9.4-12.3) fl Neutrophils % (Manual) 70 H (40-60) % Band Neutrophils % 10 (0-10) % Lymphocytes % (Manual) 17 L (20-40) % Atypical Lymphs % 0 % Monocytes % (Manual) 2 (2-10) % Eosinophils % (Manual) 1 (0.7-5.8) % Basophils % (Manual) 0 L (0.1-1.2) Platelet Estimate Adequate Plt Morphology Comment See note RBC Morph Comment Normal Sodium (136-145) mEq/L Potassium (3.5-5.1) mEq/L Chloride (98-107) mEq/L Carbon Dioxide (21-32) mEq/L Anion Gap (5-15) BUN (7-18) mg/dL Creatinine (0.55-1.02) mg/dL Est Cr Clr Drug Dosing mL/min Estimated GFR (MDRD) (>60) mL/min BUN/Creatinine Ratio (14-18) Glucose (80-115) mg/dL POC Glucose 88 (80-115) mg/dL Lactic Acid (0.4-2.0) mmol/L Calcium (8.5-10.1) mg/dL Magnesium (1.8-2.4) mg/dl Total Bilirubin (0.2-1.0) mg/dL AST (15-37) U/L ALT (14-59) U/L Alkaline Phosphatase (46-116) U/L Troponin I (0.00-0.056) ng/mL C-Reactive Protein (<1.0) mg/dL Total Protein (6.4-8.2) g/dl Albumin (3.4-5.0) g/dl Globulin gm/dL Albumin/Globulin Ratio (1-2) Urine Color Yellow (Yellow) Urine Appearance Slt cloudy H (Clear) Urine pH 7.0 (5.0-8.0) Ur Specific [place] 1.010 (1.005-1.030) Urine Protein Negative (Negative) Urine Glucose (UA) Negative (Negative) Urine Ketones Negative (Negative) Urine Occult Blood 1+ H (Negative) Urine Nitrite Negative (Negative) Urine Bilirubin Negative (Negative) Urine Urobilinogen 0.2 (0.2-1.0) Ur Leukocyte Esterase Trace H (Negative) Urine RBC 0-5 (0-5) /hpf Urine WBC 10-20 H (0-5) /hpf Ur Squamous Epith Cells 10-20 H (0-5) /hpf Amorphous Sediment Few H (NOT SEEN) /hpf Urine Bacteria Moderate H (FEW) /hpf Urine Mucus Not seen (FEW) /hpf Digoxin (0.9-2.0) ng/mL 11/27/18 11/27/18 11/27/18 Range/Units 21:50 21:50 22:00 WBC (3.98-10.04) K/mm3 RBC (3.98-5.22) M/mm3 Hgb (11.2-15.7) gm/L Hct (34.1-44.9) % MCV (79.4-94.8) fl MCH (25.6-32.2) pg MCHC (32.2-35.5) g/dl RDW Std Deviation (36.4-46.3) fL Plt Count (182-369) K/mm3 MPV (9.4-12.3) fl Neutrophils % (Manual) (40-60) % Band Neutrophils % (0-10) % Lymphocytes % (Manual) (20-40) % Atypical Lymphs % % Monocytes % (Manual) (2-10) % Eosinophils % (Manual) (0.7-5.8) % Basophils % (Manual) (0.1-1.2) Platelet Estimate Plt Morphology Comment RBC Morph Comment Sodium 137 (136-145) mEq/L Potassium 4.6 (3.5-5.1) mEq/L Chloride 103 (98-107) mEq/L Carbon Dioxide 26 (21-32) mEq/L Anion Gap 12.6 (5-15) BUN 22 H (7-18) mg/dL Creatinine 1.0 (0.55-1.02) mg/dL Est Cr Clr Drug Dosing 60.18 mL/min Estimated GFR (MDRD) 56 (>60) mL/min BUN/Creatinine Ratio 22.0 H (14-18) Glucose 91 (80-115) mg/dL POC Glucose (80-115) mg/dL Lactic Acid 1.2 (0.4-2.0) mmol/L Calcium 8.8 (8.5-10.1) mg/dL Magnesium 1.8 (1.8-2.4) mg/dl Total Bilirubin 0.6 (0.2-1.0) mg/dL AST 19 (15-37) U/L ALT 32 (14-59) U/L Alkaline Phosphatase 79 (46-116) U/L Troponin I < 0.017 (0.00-0.056) ng/mL C-Reactive Protein 4.0 H* (<1.0) mg/dL Total Protein 7.3 (6.4-8.2) g/dl Albumin 2.8 L (3.4-5.0) g/dl Globulin 4.5 gm/dL Albumin/Globulin Ratio 0.6 L (1-2) Urine Color (Yellow) Urine Appearance (Clear) Urine pH (5.0-8.0) Ur Specific [place] (1.005-1.030) Urine Protein (Negative) Urine Glucose (UA) (Negative) Urine Ketones (Negative) Urine Occult Blood (Negative) Urine Nitrite (Negative) Urine Bilirubin (Negative) Urine Urobilinogen (0.2-1.0) Ur Leukocyte Esterase (Negative) Urine RBC (0-5) /hpf Urine WBC (0-5) /hpf Ur Squamous Epith Cells (0-5) /hpf Amorphous Sediment (NOT SEEN) /hpf Urine Bacteria (FEW) /hpf Urine Mucus (FEW) /hpf Digoxin < 0.2 L (0.9-2.0) ng/mL Meds: Medications Discontinued Medications Generic Name Dose Route Start Last Admin Trade Name Freq PRN Reason Stop Dose Admin Sodium Chloride 1,000 mls @ 250 mls/hr 11/27/18 21:42 11/27/18 22:01 Normal Saline IV 11/28/18 01:41 250 mls/hr ONETIME ONE Administration Sodium Chloride 10 ml 11/27/18 21:42 11/27/18 22:01 Saline Flush FLUSH 10 ml ASDIRECTED PRN Administration Keep Vein Open - Re-Assessments/Exams Free Text/Narrative Re-Assessment/Exam: Initial examination patient is in nature fibrillation have variable rate 113. Blood pressure 162/88, temp is 98.1, rest rate 20, SPO2 95% on room air. POC glucose 88. IV established with normal saline 1 liter 500mL/h. Initial labs and studies include: CBC, chem 14, CRP, blood cultures 2, lactic acid, magnesium level, troponin, UA, chest x-ray one view, and digoxin level. EKG: Atrial fibrillation at a rate of [address] changes noted. Patient is in chronic atrial fibrillation. CXR reviewed with Dr. Parkinson revealed no concerning findings. Final interpretation is pending. Labs reviewed: White cell count 7.93, hemoglobin 15.7, platelet count 166, neutrophil percent is 70 with bands 10. Sodium, potassium, CO2, EKG, and creatinine normal. Glucose 91. Lactic acid 1.2. LFTs normal. Magnesium 1.8. Troponin less than 0.017. CRP slightly elevated at 4.0. UA indicated slightly cloudy, 1+ occult blood, trace leukocyte Estrace, urine wbc's 10-20, squamous cell epithelial cells 10-20, few amorphous sediment, bacteria moderate, mucous none. It appears urine is contaminated. I will obtain urine culture. 2301 Reassessment, patient sitting up in bed looking much better with initial examination. Heart rate still ranging between 101 and 113 verbal. Blood pressure normotensive. I will go ahead and get the patient up and ambulate a seal fast her heart rate goes. Patient may require admission for rate control. 11/27/18 23:[address] Swanson Cardiologists with [facility]. Recommends increasing carvedilol to 25mg bid. Follow-up with Dr. Valiente in 1- 2 weeks. Patients BP is 138/83 Rate 105 variable. She has taken additional dose of carvedilol 12.5mg PO here in the E.D. I have offered to admit the patient to the hospital for rate control. Patient and family members have refused. I have asked patient to monitor blood pressure daily. In addition we discussed we don't have clear cause to what is causing her current symptoms. It may be associated with her rate that is normally controlled to which the patient states normally her heart rate does not get this high. In addition it may be associated with her diet she is currently on. I've asked her to follow up with her PCP in the next 3 days. She will make an appointment with Dr. Valiente for the next 1 to 2 wks. Return precautions were discussed with the patient. Patient had no further questions concerns and agreed with plan. Departure - Departure Time of Disposition: 23:31 Disposition: Home, Self-Care 01 Condition: Good Clinical Impression: Chronic a-fib, Chronic atrial fibrillation with RVR - Discharge Information Instructions: Atrial Fibrillation, [id number] Referrals: Stan Guzman Jr, MD [Primary Care Provider] - Forms: ED Department Discharge Additional Instructions: As discussed Dr. Swanson Chemist Helper [facility] recommended increasing your carvedilol to 25 mg twice a day. Please monitor your blood pressure and rate. if you note your blood pressure is trending low and having symptoms please discontinue the increased dose. 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 I would like you to follow up with you PCP in the next 2 days for reevaluation. Push the fluids. Ensure adequate diet. Return to the ED if you develop any new or worsening symptoms. <Jerrica Elizondo Rusty - Last Filed: 11/28/18 14:59> Course - Re-Assessments/Exams Free Text/Narrative Re-Assessment/Exam: 11/28/18 14:57 Lab called and she has 2 for positive blood cultures for gram negative rods. Urine cultures also positive for gram-negative rods. She was not prescribed any antibiotics yesterday. I did call the patient spoke with her. Encouraged her to come to the ER to be admitted. She states that she is feeling better today. She is unsure if she wants to be admitted at this time she has several things going on. She will talk to her family and either present to the ER or notify her us with her decision. I did offer to at least call her in some oral antibiotics, however, did inform her that oral antibiotics may not be strong enough for her given her positive blood cultures.
--- NOTE | 2018-11-28 06:54 | CR ---
Chest: Frontal view of the chest was obtained. Comparison: Prior chest x-ray of 06/14/16. Heart size is slightly enlarged. Tortuous thoracic aorta is seen. Superior mediastinal mass appears to be present. 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 Lungs are clear with no acute parenchymal change. Impression: 1. Superior mediastinal mass pushing the trachea to the left side. This is stable from prior chest x-ray and is felt compatible with substernal thyroid goiter. 2. Mild enlargement of the heart. 3. Nothing acute is otherwise seen on frontal chest x-ray. Diagnostic code #2
== END 2018-11-27 23:55 | disposition home or self-care (01) ==
LOC: JD.ED 21:11
DX: I48.2 Chronic atrial fibrillation (principal); I10 Essential (primary) hypertension; E11.9 Type 2 diabetes mellitus without complications; Z88.8 Allergy status to other drugs, medicaments and biological substances; Z88.6 Allergy status to analgesic agent; Z79.899 Other long term (current) drug therapy; Z79.4 Long term (current) use of insulin; Z79.01 Long term (current) use of anticoagulants
CPT/HCPCS: 36415; 71045; 80053; 80162; 81001; 82962; 83605; 83735; 84484; 85007; 85027; 86140; 87040; 87086; 87088; 87186; 93005; 96360; 96361; 99284; J7040

== ENCOUNTER 2018-11-28 15:21 | Emergency (ER) | payer OTHER ==
[2018-11-28] MEDS ORDERED: Sodium Chloride 0.9% 10 ML Syringe FLUSH PRN (15:27)
[2018-11-28 15:33] VITALS: BP 159/105; PULSE 83
[2018-11-28] MEDS ORDERED: cefTRIAXone 2 GM in Sodium Chloride 0.9% 100 ML IV ONE (16:12)
--- NOTE | 2018-11-28 16:21 | EDM.PDOC ---
ED HPI GENERAL MEDICAL PROBLEM - General Chief Complaint: Genitourinary Problem Stated Complaint: BLOOD INFECTION Time Seen by Provider: 11/28/18 16:00 Source of Information: Reports: Patient, Old Records History Limitations: Reports: No Limitations - History of Present Illness INITIAL COMMENTS - FREE TEXT/NARRATIVE: 62-year-old female presents for bacteremia and UTI. Patient was seen in the ER just 1 day ago. She had labs done and was sent home. Lab called today and she has positive blood cultures for gram-negative rods. Her urine cultures also growing a gram-negative sourav. I contacted patient she states that she is feeling better. However, she is a diabetic and has significant cardiac history. I encouraged her to return to the ER to at least be checked out. She reports that her symptoms have significantly improved since being seen last night. She denies any fevers, chills, chest pain, abdominal pain or any urinary symptoms. Patient is a diabetic and states her sugars have been running good in this 70s to 100s. - Related Data Allergies Allergy/AdvReac Type Severity Reaction Status Date / Time carisoprodol [From Soma] Allergy Hives Verified 11/28/18 15:37 ketorolac tromethamine Allergy Hives Verified 11/28/18 15:37 [From Toradol] Home Meds: Home Meds Allopurinol [Zyloprim] 150 mg PO DAILY 01/31/15 [History] Fexofenadine HCl [Aller-Ease] 180 mg PO DAILY PRN 01/31/15 [History] Furosemide [Lasix] 40 mg PO DAILY 01/31/15 [History] Spironolactone [Aldactone] 12.5 mg PO DAILY 01/31/15 [History] Apixaban [Eliquis] 5 mg PO BID 06/14/16 [History] Benzocaine/Cetylpyrd/Menthol [Cepacol Sore Throat] 1 lozenge MUCMEM 5XDAY PRN # 30 riley 06/19/16 [Rx] Amiodarone [Cordarone] 200 mg PO DAILY 11/27/18 [History] Carvedilol [Coreg] 12.5 mg PO BID 11/27/18 [History] Insulin Detemir [Levemir Flextouch] 20 unit SUBCUT BID 11/27/18 [History] amLODIPine [Norvasc] 5 mg PO DAILY 11/27/18 [History] Levofloxacin [Levaquin] 750 mg PO DAILY #6 tablet 11/28/18 [Rx] Past Medical History Cardiovascular History: Reports: Afib, Hypertension Other Cardiovascular History: cardioversion, Respiratory History: Reports: PE Other [employer] History: X 2 Endocrine/Metabolic History: Reports: Diabetes, Type II Hematologic History: Reports: Other (See Below) Other Hematologic History: high Hgb - Past Surgical History HEENT Surgical History: Reports: Tonsillectomy Female Surgical History: Reports: Section, Hysterectomy Social & Family History - Family History Family Medical History: Noncontributory - Tobacco Use Smoking Status *Q: Never Smoker Second Hand Smoke Exposure: No - Caffeine Use Caffeine Use: Reports: Coffee - Recreational Drug Use Recreational Drug Use: No - Living Situation & Occupation Living situation: Reports: Occupation: Employed ED ROS GENERAL - Review of Systems Review Of Systems: See Below Constitutional: Denies: Fever, Chills Cardiovascular: Denies: Chest Pain Endocrine: Denies: High Glucose, Low Glucose GI/Abdominal: Denies: Abdominal Pain, Nausea, Vomiting : Reports: No Symptoms ED EXAM, RENAL/ - Physical Exam Exam: See Below Exam Limited By: No Limitations General Appearance: Alert, WD/WN, No Apparent Distress, Obese Throat/Mouth: Normal Inspection, Normal Voice, No Airway Compromise Neck: Normal Inspection Respiratory/Chest: No Respiratory Distress, Lungs Clear, Normal Breath Sounds Cardiovascular: Normal Peripheral Pulses, Regular Rate, Rhythm, No Murmur GI/Abdominal: Normal Bowel Sounds, Soft, Non-Tender Neurological: Alert, Oriented, Normal Cognition Psychiatric: Normal Affect, Normal Mood Skin Exam: Warm, Dry, Normal Color Course - Vital Signs Last Recorded V/S: Last Vital Signs Temp 97.8 F 11/28/18 15:32 Pulse 83 11/28/18 15:32 Resp 16 11/28/18 15:32 BP 159/105 H 11/28/18 15:32 Pulse Ox 96 11/28/18 15:32 - Orders/Labs/Meds Labs: Laboratory Tests 11/28/18 11/28/18 11/28/18 Range/Units 15:40 15:40 15:40 WBC 9.32 (3.98-10.04) K/mm3 RBC 5.43 H (3.98-5.22) M/mm3 Hgb 16.4 H (11.2-15.7) gm/L Hct 49.3 H (34.1-44.9) % MCV 90.8 (79.4-94.8) fl MCH 30.2 (25.6-32.2) pg MCHC 33.3 (32.2-35.5) g/dl RDW Std Deviation 47.2 H (36.4-46.3) fL Plt Count 178 L (182-369) K/mm3 MPV 12.2 (9.4-12.3) fl Neutrophils % (Manual) 72 H (40-60) % Band Neutrophils % 0 (0-10) % Lymphocytes % (Manual) 19 L (20-40) % Atypical Lymphs % 0 % Monocytes % (Manual) 8 (2-10) % Eosinophils % (Manual) 1 (0.7-5.8) % Basophils % (Manual) 0 L (0.1-1.2) Platelet Estimate Adequate RBC Morph Comment Normal Sodium 137 (136-145) mEq/L Potassium 4.7 (3.5-5.1) mEq/L Chloride 100 (98-107) mEq/L Carbon Dioxide 24 (21-32) mEq/L Anion Gap 17.7 H (5-15) BUN 22 H (7-18) mg/dL Creatinine 1.0 (0.55-1.02) mg/dL Est Cr Clr Drug Dosing 60.18 mL/min Estimated GFR (MDRD) 56 (>60) mL/min BUN/Creatinine Ratio 22.0 H (14-18) Glucose 87 (80-115) mg/dL Lactic Acid 1.0 (0.4-2.0) mmol/L Calcium 8.8 (8.5-10.1) mg/dL Total Bilirubin 0.6 (0.2-1.0) mg/dL AST 25 (15-37) U/L ALT 40 (14-59) U/L Alkaline Phosphatase 90 (46-116) U/L C-Reactive Protein 5.7 H* (<1.0) mg/dL Total Protein 8.1 (6.4-8.2) g/dl Albumin 3.1 L (3.4-5.0) g/dl Globulin 5.0 gm/dL Albumin/Globulin Ratio 0.6 L (1-2) TSH 3rd Generation 0.891 (0.358-3.74) uIU/mL Meds: Medications Discontinued Medications Generic Name Dose Route Start Last Admin Trade Name Che PRN Reason Stop Dose Admin Ceftriaxone Sodium 2 gm/ 100 mls @ 200 mls/hr 11/28/18 16:12 11/28/18 16:55 Sodium Chloride IV 11/28/18 16:41 Not Given ONETIME ONE Levofloxacin/Dextrose 750 mg/ 150 mls @ 100 mls/hr 11/28/18 16:31 11/28/18 16 :41 Premix IV 11/28/18 18:00 100 mls/hr ONETIME ONE Administration Sodium Chloride 10 ml 11/28/18 15:27 11/28/18 15:41 Saline Flush FLUSH 10 ml ASDIRECTED PRN Administration Keep Vein Open - Re-Assessments/Exams Free Text/Narrative Re-Assessment/Exam: 11/28/18 16:[address] Thurston, hospitalist on. He will come to the ER to see the patient. He feels She does not need to be admitted but we will offer this option to her. If not she can go home and follow up with her primary care provider in the next few days to ensure blood cultures are clear. He recommended putting her on Levaquin for better coverage. 11/28/18 17:18 Patient was offered admission she declined. She like to follow closely with her primary care provider put her on Levaquin. She has received IV levaquin. Discharge instructions as documented. Departure - Departure Time of Disposition: 17:27 Disposition: Home, Self-Care 01 Condition: Fair Clinical Impression: Bacteremia, UTI, Urinary tract infectious disease - Discharge Information *PRESCRIPTION DRUG MONITORING PROGRAM REVIEWED*: No *COPY OF PRESCRIPTION DRUG MONITORING REPORT IN PATIENT ADARSH: No Prescriptions: Levofloxacin [Levaquin] 750 mg PO DAILY #6 tablet Instructions: Urinary Tract Infection, Adult, [id number], Bacteremia Referrals: Stan Guzman Jr, MD [Primary Care Provider] - Forms: ED Department Discharge Additional Instructions: Levaquin 1 tab Po daily x 7 days, first dose given in the ER. Start your Rx tomorrow. Follow-up with PCP Tuesday afternoon or Tuesday morning for a recheck of your labs and to have blood cultures redrawn. Drink plenty of fluids. Please return to the ER should your symptoms change or worsen.
[2018-11-28] MEDS ORDERED: Levofloxacin/Dextrose 5%-Water 750 MG in Premix Bag 1 BAG IV ONE (16:31)
== END 2018-11-28 18:20 | disposition home or self-care (01) ==
LOC: JD.ED 15:21
DX: N39.0 Urinary tract infection, site not specified (principal); R78.81 Bacteremia; I10 Essential (primary) hypertension; E11.9 Type 2 diabetes mellitus without complications; Z79.4 Long term (current) use of insulin; Z79.899 Other long term (current) drug therapy; Z98.890 Other specified postprocedural states; Z90.710 Acquired absence of both cervix and uterus; Z88.6 Allergy status to analgesic agent
CPT/HCPCS: 36415; 80053; 83605; 84443; 85007; 85027; 86140; 96365; 99284; J1956; 99283

== ENCOUNTER 2019-05-22 21:47 | Emergency (ER) | payer OTHER ==
[2019-05-22 22:30] VITALS: BP 185/97
--- NOTE | 2019-05-22 23:13 | EDM.PDOC ---
ED HPI GENERAL MEDICAL PROBLEM - General Chief Complaint: Gastrointestinal Problem Stated Complaint: BACK PAIN DIARRHEA Time Seen by Provider: 05/22/19 23:11 Source of Information: Reports: Patient History Limitations: Reports: No Limitations - History of Present Illness INITIAL COMMENTS - FREE TEXT/NARRATIVE: 63-year-old female presents to the ED with sudden onset of diffuse lower abdominal pain and 3 fairly large diarrheal stools. Contain mostly brownish stool with no blood and was semi-formed stool. She now has diffuse low back pain bilaterally. Her concern is whether or not she is developing another urinary tract infection as she is very prone to them. She therefore came to the ED. She reports that she is not been feeling well for the better part of a week with intermittent low-grade fevers and paroxysmal cough but not bringing up any sputum. Type perhaps has not been the best. She did have dinner today and did have a little bit for supper tonight as well. He is an insulin- dependent diabetic for many years and blood sugars have been well controlled. Mild chronic low back pain. No recent falls or injuries. Back pain does not appear to be musculoskeletal as it is not worsened by getting out of the car walking etc. Onset: Today Onset Date: 05/22/19 Onset Time: 18:30 Duration: Hour(s): (1 onset of diarrheal stools.) Location: Reports: Back (Diffuse bilateral low back pain discomfort. Not in her flanks.) Quality: Reports: Ache Severity: Moderate (Scribes it as a deep aching discomfort.) Improves with: Reports: None Worsens with: Reports: None Context: Denies: Activity, Exercise, Lifting, Sick Contact, Trauma, Other Associated Symptoms: Reports: Cough (Productive), Fever/Chills, Malaise. Denies : Confusion (Has been having low-grade fevers.), Chest Pain, cough w sputum, Loss of Appetite, Seizure, Shortness of Breath, Syncope Treatments INFORMATICS COORDINATOR: Reports: Other (see below) (None.) Bilateral Lower Back Pain Score (Numeric/FACES): 3 - Related Data Allergies Allergy/AdvReac Type Severity Reaction Status Date / Time carisoprodol [From Soma] Allergy Hives Verified 05/22/19 22:30 ketorolac tromethamine Allergy Hives Verified 05/22/19 22:30 [From Toradol] Home Meds: Home Meds Allopurinol [Zyloprim] 150 mg PO DAILY 01/31/15 [History] Fexofenadine HCl [Aller-Ease] 180 mg PO DAILY PRN 01/31/15 [History] Furosemide [Lasix] 40 mg PO DAILY 01/31/15 [History] Spironolactone [Aldactone] 12.5 mg PO DAILY 01/31/15 [History] Apixaban [Eliquis] 5 mg PO BID 06/14/16 [History] Benzocaine/Cetylpyrd/Menthol [Cepacol Sore Throat] 1 lozenge MUCMEM 5XDAY PRN # 30 riley 06/19/16 [Rx] Amiodarone [Cordarone] 200 mg PO DAILY 11/27/18 [History] Insulin Detemir [Levemir Flextouch] 14 unit SUBCUT BID 11/27/18 [History] amLODIPine [Norvasc] 5 mg PO DAILY 11/27/18 [History] carvediloL [Coreg] 25 mg PO BID 11/27/18 [History] Exenatide Microspheres [Bydureon Pen] 2 mg SQ WEEKLY 05/22/19 [History] polyethylene glycoL 3350 [MiraLAX] 17 gm PO DAILY #6 packet 05/23/19 [Rx] Past Medical History Cardiovascular History: Reports: Afib (Patient is on Eliquis for atrial fibrillation.), Hypertension Other Cardiovascular History: Cardioversion x2 Respiratory History: Reports: PE, Pneumonia, Recurrent Gastrointestinal History: Reports: None DIRECTOR PHYSICAL THERAPY History: Reports: Other DIRECTOR PHYSICAL THERAPY History: X 2 Musculoskeletal History: Reports: Arthritis, Gout (On allopurinol for gout prevention) Neurological History: Reports: None Psychiatric History: Reports: None Endocrine/Metabolic History: Reports: Diabetes, Type II, Obesity/BMI 30+ Hematologic History: Reports: Other (See Below) Other Hematologic History: high Hgb Immunologic History: Reports: None Oncologic (Cancer) History: Reports: None Dermatologic History: Reports: None - Infectious Disease History Infectious Disease History: Reports: None - Past Surgical History HEENT Surgical History: Reports: Tonsillectomy Female Surgical History: Reports: Section, Hysterectomy Social & Family History - Family History Family Medical History: Noncontributory - Tobacco Use Smoking Status *Q: Never Smoker - Caffeine Use Caffeine Use: Reports: Coffee - Recreational Drug Use Recreational Drug Use: No - Living Situation & Occupation Living situation: Reports: Occupation: Employed ED ROS GENERAL - Review of Systems Review Of Systems: See Below Constitutional: Reports: Fever, Malaise (Intermittent low-grade fevers.), Fatigue. Denies: Chills HEENT: Reports: No Symptoms Respiratory: Reports: Cough (Productive cough and hoarse voice for the last week ) Cardiovascular: Reports: No Symptoms, Blood Pressure Problem, Dyspnea on Exertion (Usually around the ankles. Phonically), Edema. Denies: Chest Pain, Claudication, Lightheadedness, Orthopnea Endocrine: Reports: Fatigue, Other (She is a insulin-dependent diabetic but sugars have been very well controlled.) GI/Abdominal: Reports: Abdominal Pain (There is mild lower abdominal discomfort. ), Diarrhea ( She will call it a pain 3 diarrhea stools about 1830 hrs. tonight of soft liquid brown stool. No blood). Denies: Hematemesis, Hematochezia, Nausea, Stool Incontinence, Vomiting : Reports: Frequency. Denies: Dysuria, Incontinence, Urgency Musculoskeletal: Reports: Back Pain, Joint Pain (General low back pain no pain in her knees and hips.) Skin: Reports: Bruising (Oozing across her abdominal wall from insulin injections over many years.) Neurological: Reports: No Symptoms Psychiatric: Reports: No Symptoms Hematologic/Lymphatic: Reports: No Symptoms Immunologic: Reports: No Symptoms ED EXAM, GI/ABD - Physical Exam Exam: See Below Exam Limited By: No Limitations General Appearance: Alert, WD/WN, No Apparent Distress, Other (Temperature is 36.6. Heart rate was 68 and sinus. Respiratory was 18 BP initially was elevated at 185/90 7-1 60-90. Pulse ox was 94% on room air.) Eyes: Bilateral: Normal Appearance (No scleral icterus or blepharal pallor.) Throat/Mouth: Normal Inspection, Normal Lips, Normal Oropharynx, Other Head: Atraumatic, Normocephalic (Is slightly dry and coated) Neck: Normal Inspection, Supple, Non-Tender, Full Range of Motion. No: Carotid Bruit, Lymphadenopathy (L), Lymphadenopathy (R) Respiratory/Chest: No Respiratory Distress, Lungs Clear, Normal Breath Sounds, No Accessory Muscle Use, Other. No: Rhonchi, Wheezing (Hoarse voice but lungs sound clear to all station percussion.) Cardiovascular: Normal Peripheral Pulses, Regular Rate, Rhythm, No Edema, No Gallop, No Murmur, No Rub GI/Abdominal Exam: Soft (Sounds are quite active in all 4 quadrants.), Non- Tender, No Organomegaly, No Abnormal Bruit, No Mass, Pelvis Stable, Abnormal Bowel Sounds, Other (Abdominal girth limits ability to palpate solid organs well. Has a well-healed midline infraumbilical incision from previous C- section x2 and she has had total abdominal hysterectomy.) Back Exam: Normal Inspection, Full Range of Motion. No: CVA Tenderness (L), CVA Tenderness (R) Extremities: Normal Range of Motion, No Pedal Edema, Other (Evidence of limited range of motion both knees due to osteoarthritic changes) Neurological: Alert, Oriented, CN II-XII Intact, Normal Cognition Psychiatric: Normal Affect, Normal Mood Skin Exam: Warm, Dry, Intact, Normal Color, No Rash Course - Vital Signs Last Recorded V/S: Last Vital Signs Temp 36.6 C 05/22/19 22:25 Pulse 68 05/22/19 22:25 Resp 18 05/22/19 22:25 BP 185/97 H 05/22/19 22:25 Pulse Ox 94 L 05/22/19 22:25 - Orders/Labs/Meds Orders: Active Orders 24 hr Category Date Time Status Abdomen 1V Flat [CR] Stat Exams 05/22/19 23:12 Taken Sodium Chloride 0.9% [Normal Saline] 1,000 ml Med 05/22/19 23:15 Active IV ASDIRECTED Medication Orders Sodium Chloride (Normal Saline) 1,000 mls @ 999 mls/hr IV ASDIRECTED JULISA Last Admin: 05/22/19 23:45 Dose: 999 mls/hr Labs: Laboratory Tests 05/22/19 05/22/19 05/22/19 Range/Units 22:45 23:30 23:30 WBC 5.39 (3.98-10.04) K/mm3 RBC 5.41 H (3.98-5.22) M/mm3 Hgb 16.5 H (11.2-15.7) gm/dl Hct 48.4 H (34.1-44.9) % MCV 89.5 (79.4-94.8) fl MCH 30.5 (25.6-32.2) pg MCHC 34.1 (32.2-35.5) g/dl RDW Std Deviation 46.7 H (36.4-46.3) fL Plt Count 158 L (182-369) K/mm3 MPV 12.1 (9.4-12.3) fl Neut % (Auto) 65.7 (34.0-71.1) % Lymph % (Auto) 24.3 (19.3-51.7) % [place] % (Auto) 8.7 (4.7-12.5) % Eos % (Auto) 0.9 (0.7-5.8) Baso % (Auto) 0.4 (0.1-1.2) % Neut # (Auto) 3.54 (1.56-6.13) K/mm3 Lymph # (Auto) 1.31 (1.18-3.74) K/mm3 [place] # (Auto) 0.47 H (0.24-0.36) K/mm3 Eos # (Auto) 0.05 (0.04-0.36) K/mm3 Baso # (Auto) 0.02 (0.01-0.08) K/mm3 Sodium 140 (136-145) mEq/L Potassium 4.5 (3.5-5.1) mEq/L Chloride 102 (98-107) mEq/L Carbon Dioxide 26 (21-32) mEq/L Anion Gap 16.5 H (5-15) BUN 43 H (7-18) mg/dL Creatinine 1.4 H (0.55-1.02) mg/dL Est Cr Clr Drug Dosing 42.43 mL/min Estimated GFR (MDRD) 38 (>60) mL/min BUN/Creatinine Ratio 30.7 H (14-18) Glucose 108 (80-115) mg/dL Hemoglobin A1c (4.50-6.20) % Calcium 8.5 (8.5-10.1) mg/dL Magnesium 1.7 L (1.8-2.4) mg/dl Total Bilirubin 0.3 (0.2-1.0) mg/dL AST 35 (15-37) U/L ALT 42 (14-59) U/L Alkaline Phosphatase 89 (46-116) U/L C-Reactive Protein 0.9 (<1.0) mg/dL Total Protein 7.6 (6.4-8.2) g/dl Albumin 3.3 L (3.4-5.0) g/dl Globulin 4.3 gm/dL Albumin/Globulin Ratio 0.8 L (1-2) Urine Color Yellow (Yellow) Urine Appearance Clear (Clear) Urine pH 6.0 (5.0-8.0) Ur Specific [place] 1.015 (1.005-1.030) Urine Protein 1+ H (Negative) Urine Glucose (UA) Negative (Negative) Urine Ketones Negative (Negative) Urine Occult Blood Negative (Negative) Urine Nitrite Negative (Negative) Urine Bilirubin Negative (Negative) Urine Urobilinogen 0.2 (0.2-1.0) Ur Leukocyte Esterase Trace H (Negative) Urine RBC 5-10 H (0-5) /hpf Urine WBC 0-5 (0-5) /hpf Ur Squamous Epith Cells 5-10 H (0-5) /hpf Urine Bacteria Few (FEW) /hpf Urine Mucus Not seen (FEW) /hpf 05/22/19 Range/Units 23:30 WBC (3.98-10.04) K/mm3 RBC (3.98-5.22) M/mm3 Hgb (11.2-15.7) gm/dl Hct (34.1-44.9) % MCV (79.4-94.8) fl MCH (25.6-32.2) pg MCHC (32.2-35.5) g/dl RDW Std Deviation (36.4-46.3) fL Plt Count (182-369) K/mm3 MPV (9.4-12.3) fl Neut % (Auto) (34.0-71.1) % Lymph % (Auto) (19.3-51.7) % [place] % (Auto) (4.7-12.5) % Eos % (Auto) (0.7-5.8) Baso % (Auto) (0.1-1.2) % Neut # (Auto) (1.56-6.13) K/mm3 Lymph # (Auto) (1.18-3.74) K/mm3 [place] # (Auto) (0.24-0.36) K/mm3 Eos # (Auto) (0.04-0.36) K/mm3 Baso # (Auto) (0.01-0.08) K/mm3 Sodium (136-145) mEq/L Potassium (3.5-5.1) mEq/L Chloride (98-107) mEq/L Carbon Dioxide (21-32) mEq/L Anion Gap (5-15) BUN (7-18) mg/dL Creatinine (0.55-1.02) mg/dL Est Cr Clr Drug Dosing mL/min Estimated GFR (MDRD) (>60) mL/min BUN/Creatinine Ratio (14-18) Glucose (80-115) mg/dL Hemoglobin A1c 6.10 (4.50-6.20) % Calcium (8.5-10.1) mg/dL Magnesium (1.8-2.4) mg/dl Total Bilirubin (0.2-1.0) mg/dL AST (15-37) U/L ALT (14-59) U/L Alkaline Phosphatase (46-116) U/L C-Reactive Protein (<1.0) mg/dL Total Protein (6.4-8.2) g/dl Albumin (3.4-5.0) g/dl Globulin gm/dL Albumin/Globulin Ratio (1-2) Urine Color (Yellow) Urine Appearance (Clear) Urine pH (5.0-8.0) Ur Specific [place] (1.005-1.030) Urine Protein (Negative) Urine Glucose (UA) (Negative) Urine Ketones (Negative) Urine Occult Blood (Negative) Urine Nitrite (Negative) Urine Bilirubin (Negative) Urine Urobilinogen (0.2-1.0) Ur Leukocyte Esterase (Negative) Urine RBC (0-5) /hpf Urine WBC (0-5) /hpf Ur Squamous Epith Cells (0-5) /hpf Urine Bacteria (FEW) /hpf Urine Mucus (FEW) /hpf Meds: Medications Generic Name Dose Route Start Last Admin Trade Name Freq PRN Reason Stop Dose Admin Sodium Chloride 1,000 mls @ 999 mls/hr 05/22/19 23:15 05/22/19 23:45 Normal Saline IV 999 mls/hr ASDIRECTED JULISA Administration - Radiology Interpretation Free Text/Narrative:: 63-year-old female presents to the ED with diffuse low back pain bilaterally. This started after having 3 loose semi-formed stools which are brownish in color shortly after eating supper tonight at about 1830 hrs. She has mild diffuse lower abdominal pain. She calls it more of a discomfort. She is concerned that she may be developing a recurrent urinary tract infection which she has has been very prone to. She has been ill with upper respiratory infection remains quite hoarse with the intermittent mild nonproductive cough. She states her blood sugars have been well controlled. Lungs are clear to osseous percussion heart was sinus with although she has a history of atrial fib and is on Eliquis daily. Obese abdomen but soft palpation without any organomegaly or masses. Bowel sounds are very active in all 4 quadrants. Radical abdomen. Lots of bruising across the abdominal wall from insulin injections. She appears to be mildly volume depleted. Plan normal saline at open. Routine labs to be checked in 1 view of the abdomen to be done. - Re-Assessments/Exams Free Text/Narrative Re-Assessment/Exam: 05/23/19 00:09 Labs reveal a normal white count at 5.39. Differential is 65.7 % neutrophils by auto differential. Hemoglobin is 16.5 with hematocrit of 48.4 suggesting mild concentration. Platelet count is 158,000. Sodium 140 with a potassium of 4.5. Chloride is 102 with a bicarb of 26. Anion gap is 16.5. BUN was 43 with a creatinine of 1.4 GFR is 38 stage III chronic kidney disease. Glucose is 108 with a hemoglobin A1c of 6.10 excellent control of her blood sugars. Calcium is 8.5 with a magnesium slightly low at 1.7. Liver function is normal. Total protein is 7.6 albumin fraction 3.3. Urinalysis shows 1+ proteinuria a trace of leukocyte esterase. 5-10 RBCs 0-5 WBCs and 5-10 squamous epithelial cells. Only a few bacteria were identified. Be taxed KUB reveals increased stool throughout the cecum particularly the very beginning of the cecum and portions of the ascending and transverse colon. Small quantity of stool upper descending colon. Rectal vault is empty. There is no sign of a bowel obstruction. 05/23/19 00:19 to the patient about the above findings. Suggested MiraLAX powder 17 g or 1 scoop daily for the next 5 days to ensure that her bowel gets completely cleaned out particularly the cecum. She will finish up her IV fluids and then be discharged home. 05/23/19 00:38 completed a liter of IV fluids and is feeling improved. She will be discharged home to use the MiraLAX as mentioned above. Follow-up as necessary Departure - Departure Time of Disposition: 00:38 Disposition: Home, Self-Care 01 Condition: Fair Clinical Impression: Lower abdominal pain, Diarrhea, Constipation by delayed colonic transit Bilateral low back pain Qualifiers: Chronicity: acute Sciatica presence: without sciatica Qualified Code(s): M54.5 - Low back pain - Discharge Information *PRESCRIPTION DRUG MONITORING PROGRAM REVIEWED*: Not Applicable *COPY OF PRESCRIPTION DRUG MONITORING REPORT IN PATIENT ADARSH: Not Applicable Prescriptions: polyethylene glycoL 3350 [MiraLAX] 17 gm PO DAILY #6 packet Instructions: Acute Back Pain, Adult, Abdominal Pain, Adult, Kdty-[id number] Referrals: Stan Guzman Jr, MD [Primary Care Provider] - Forms: ED Department Discharge Additional Instructions: Evaluation in the emergency room tonight in regard to sudden onset of diarrhea stool x3. This remains unclear. You have no other signs of illness such as gastroenteritis etc. Zeng rolls as you are very prone to urinary tract infection and therefore you came into the ED for further evaluation. No surgical signs of abdominal pain were evident. Bowel sounds were quite active in all 4 quadrants. An x-ray of the abdomen shows increased stool throughout the right hemicolon and portions of the transverse colon which travels across the upper abdomen towards the left side under your rib cage. The lower colon is empty after having diarrhea. Or there is a low-grade constipation problem with a fairly large stool bolus in your first part of the small bowel right lower quadrant called the cecum. Suggest taking MiraLAX powder 17 g or 1 scoop daily for the next 5 to 6 days to make sure that the bowel clear out completely and prevent further bouts of diarrhea. Lab work proved to show no abnormalities and no signs of urinary tract infection. You were given a liter of IV fluids due to very mild dehydration. New all medications as you have been doing as you are glycosylate protein today is 6.1 meaning your blood sugars are under very excellent control Sepsis Event Note - Evaluation Sepsis Screening Result: No Definite Risk - Focused Exam Vital Signs: Vital Signs Temp Pulse Resp BP Pulse Ox 05/22/19 22:25 36.6 C 68 18 185/97 H 94 L Date Exam was Performed: 05/23/19 Time Exam was Performed: 00:29 - My Orders Last 24 Hours: My Active Orders 05/22/19 23:12 Abdomen 1V Flat [CR] Stat 05/22/19 23:15 Sodium Chloride 0.9% [Normal Saline] 1,000 ml IV ASDIRECTED - Assessment/Plan Last 24 Hours: My Active Orders 05/22/19 23:12 Abdomen 1V Flat [CR] Stat 05/22/19 23:15 Sodium Chloride 0.9% [Normal Saline] 1,000 ml IV ASDIRECTED
[2019-05-22] MEDS ORDERED: Sodium Chloride 0.9% 1,000 ML IV SCH (23:15)
[2019-05-22 23:54] LABS: HEMOGLOBIN A1C 6.1 % (4.50-6.20)
[2019-05-23 00:35] VITALS: PULSE 78
--- NOTE | 2019-05-23 07:22 | CR ---
Abdomen: Supine view of the abdomen was obtained. Comparison: No prior abdominal imaging. Severe degenerative change is noted within the right hip. Mild joint space narrowing is seen within the left hip. Bowel gas pattern appears normal. Calcifications are seen within the left pelvis compatible with phleboliths. Mild arterial calcification is seen. Impression: 1. Degenerative change. 2. Nothing acute is seen within the abdomen on plain film study. Diagnostic code #2 This report was dictated in [place] Standard Time
== END 2019-05-23 00:30 | disposition home or self-care (01) ==
LOC: JD.ED 21:47
DX: K59.01 Slow transit constipation (principal); M54.5 Low back pain; R19.7 Diarrhea, unspecified; E11.9 Type 2 diabetes mellitus without complications; I10 Essential (primary) hypertension; Z88.8 Allergy status to other drugs, medicaments and biological substances; Z79.899 Other long term (current) drug therapy; Z79.4 Long term (current) use of insulin
CPT/HCPCS: 36415; 74018; 80053; 81001; 83036; 83735; 85025; 86140; 96360; 99284; J7030; 99283

== ENCOUNTER → 2021-09-07 | Day surgery (SDC) | payer MEDICARE, BC ==
[~2021-09-07] MED LIST: Acetaminophen 325 MG Tab PO SCH; Lactated Ringers 1,000 ML IV SCH; Lidocaine 1% 5 ML VIAL ONE; Lidocaine 1%/Sod Bicarbonate in NS 8.4% 1 ML Syringe IDERM PRN; Midazolam 1 MG/ML 2 ML SDV ONE; Morphine 8 MG, EPINEPHrine 0.3 MG, Cefuroxime 750 MG, Sodium Chloride 0.9% 7.9 ML PRN; Phenylephrine 1% 10 MG/ML SDV ONE; Pregabalin 25 MG Cap PO SCH; Propofol 200 MG/20 ML SDV ONE; Sodium Chloride 0.9% 10 ML Syringe FLUSH PRN; Sodium Chloride 0.9% 10 ML Syringe FLUSH SCH; Sodium Chloride 0.9% 100 ML ONE; ceFAZolin 1 GM Vial ONE; fentaNYL 100 MCG/2 ML SDV ONE; oxyCODONE ER 10 MG TAB.ER PO SCH
== END | disposition home or self-care (01) ==
LOC: JD.SDS 08:00
PROVIDERS: ATTEND Orthopaedic Surgery
DX: M19.90 Unspecified osteoarthritis, unspecified site (principal); Z53.09 Procedure and treatment not carried out because of other contraindication
CPT/HCPCS: 36415; 82947; 86850; 86900; 86901

== ENCOUNTER 2021-09-09 09:52 | Inpatient (IN) | payer MEDICARE, BC ==
[~2021-09-09 09:52] MED LIST changes: -Lidocaine 1% 5 ML VIAL ONE; -Midazolam 1 MG/ML 2 ML SDV ONE; -Phenylephrine 1% 10 MG/ML SDV ONE; -Propofol 200 MG/20 ML SDV ONE; -Sodium Chloride 0.9% 10 ML Syringe FLUSH SCH; -Sodium Chloride 0.9% 100 ML ONE; -ceFAZolin 1 GM Vial ONE; -fentaNYL 100 MCG/2 ML SDV ONE
[2021-09-09] MEDS ORDERED: Scopolamine 1.5 MG Transdermal Patch TRDERM PRN (10:00)
[2021-09-09] MEDS ORDERED: Vancomycin 1 GM SDV ONE (10:21)
[2021-09-09] MEDS ORDERED: Midazolam 1 MG/ML 2 ML SDV ONE (10:38)
[2021-09-09] MEDS ORDERED: fentaNYL 100 MCG/2 ML SDV ONE (10:39)
[2021-09-09] MEDS ORDERED: Propofol 200 MG/20 ML SDV ONE ×3 (10:40→12:41)
[2021-09-09] MEDS ORDERED: Lidocaine 1% 5 ML VIAL ONE (10:41)
[2021-09-09] MEDS ORDERED: ceFAZolin 1 GM Vial ONE (10:42)
[2021-09-09] MEDS ORDERED: Phenylephrine 1% 10 MG/ML SDV ONE (11:45)
[2021-09-09] MEDS ORDERED: Ondansetron 4 MG/2 ML SDV IVPUSH PRN (12:11)
[2021-09-09] MEDS ORDERED: HYDROmorphone 0.5 MG/0.5 ML Syringe IVPUSH PRN (12:11)
[2021-09-09] MEDS ORDERED: fentaNYL 100 MCG/2 ML SDV IVPUSH PRN (12:11)
[2021-09-09] MEDS ORDERED: oxyCODONE 5 MG Tab PO PRN ×2 (13:40→19:48)
[2021-09-09] MEDS ORDERED: Cyclobenzaprine 10 MG Tab PO PRN ×2 (13:40→16:20)
[2021-09-09] MEDS ORDERED: Naloxone 0.4 MG/ML SDV IVPUSH PRN (16:21)
[2021-09-09] MEDS: oxyCODONE 5 MG Tab PO PRN ×2 (16:52→23:32)
[2021-09-09] MEDS: Sodium Chloride 0.9% 10 ML Syringe FLUSH SCH (17:51)
[2021-09-09] MEDS: Morphine 2 MG/ML SYRINGE IVPUSH PRN (20:25)
[2021-09-10] MEDS: oxyCODONE 5 MG Tab PO PRN ×3 (03:36→13:58)
[2021-09-10] MEDS ORDERED: diphenhydrAMINE 50 MG/ML SDV IVPUSH PRN (15:00)
[2021-09-10] MEDS ORDERED: Ondansetron 4 MG Tab.DIS PO PRN (16:41)
[2021-09-10] MEDS ORDERED: oxyCODONE 5 MG Tab PO PRN (16:41)
[2021-09-10] MEDS: Famotidine 20 MG Tab PO SCH (19:24)
[2021-09-10] MEDS: Insulin Glargine,Human Rec. Analog 100 Units/ML 3 ML Pen SUBCUT SCH (20:47)
[2021-09-10] MEDS: Morphine 2 MG/ML SYRINGE IVPUSH PRN (20:49)
[2021-09-10] MEDS: Apixaban 5 MG Tab PO SCH (20:50)
[2021-09-10] MEDS: Carvedilol 12.5 MG Tab PO SCH (20:50)
[2021-09-10] MEDS ORDERED: Acetaminophen 325 MG Tab PO ONE (23:43)
[2021-09-11] MEDS: Morphine 2 MG/ML SYRINGE IVPUSH PRN ×2 (00:28→03:51)
[2021-09-11] MEDS: Famotidine 20 MG Tab PO SCH ×2 (02:18→14:00)
[2021-09-11] MEDS: Acetaminophen 325 MG Tab PO PRN (04:15)
[2021-09-11] MEDS: Acetaminophen/oxyCODONE 325-5 MG Tab PO PRN ×3 (08:50→23:44)
[2021-09-11] MEDS: Carvedilol 12.5 MG Tab PO SCH ×2 (08:56→20:48)
[2021-09-11] MEDS: Docusate Sodium 100 MG Cap PO PRN ×2 (08:56→20:48)
[2021-09-11] MEDS: Amiodarone 200 MG Tab PO SCH (08:58)
[2021-09-11] MEDS: amLODIPine 5 MG Tab PO SCH (08:59)
[2021-09-11] MEDS: Spironolactone 25 MG Tab PO SCH (08:59)
[2021-09-11] MEDS: Furosemide 40 MG Tab PO SCH (09:00)
[2021-09-11] MEDS: Allopurinol 300 MG Tab PO SCH (09:00)
[2021-09-11] MEDS: Apixaban 5 MG Tab PO SCH ×2 (09:01→20:48)
[2021-09-11] MEDS: Saccharomyces Boulardii (Probiotic) 250 MG Cap PO SCH (09:01)
[2021-09-11] MEDS: Insulin Glargine,Human Rec. Analog 100 Units/ML 3 ML Pen SUBCUT SCH ×2 (09:02→20:54)
[2021-09-11] MEDS: Insulin Lispro 100 Unit/ML 3 ML KwikPen SUBCUT SCH ×3 (13:54→23:49)
[2021-09-11] MEDS: Digoxin 125 MCG Tab PO SCH (13:54)
[2021-09-12] MEDS: Famotidine 20 MG Tab PO SCH ×3 (06:34→18:26)
[2021-09-12] MEDS: Acetaminophen/oxyCODONE 325-5 MG Tab PO PRN ×2 (06:34→20:09)
[2021-09-12] MEDS: Insulin Lispro 100 Unit/ML 3 ML KwikPen SUBCUT SCH ×4 (07:40→22:28)
[2021-09-12] MEDS ORDERED: Scopolamine 1.5 MG Transdermal Patch TRDERM PRN (09:00)
[2021-09-12] MEDS: Amiodarone 200 MG Tab PO SCH (09:26)
[2021-09-12] MEDS: amLODIPine 5 MG Tab PO SCH (09:26)
[2021-09-12] MEDS: Saccharomyces Boulardii (Probiotic) 250 MG Cap PO SCH (09:27)
[2021-09-12] MEDS: Carvedilol 12.5 MG Tab PO SCH ×2 (09:27→20:13)
[2021-09-12] MEDS: Allopurinol 300 MG Tab PO SCH (09:28)
[2021-09-12] MEDS: Furosemide 40 MG Tab PO SCH (09:28)
[2021-09-12] MEDS: Apixaban 5 MG Tab PO SCH ×2 (09:29→20:10)
[2021-09-12] MEDS: Insulin Glargine,Human Rec. Analog 100 Units/ML 3 ML Pen SUBCUT SCH ×2 (09:29→20:15)
[2021-09-12] MEDS: Polyethylene Glycol 3350 Powder 17 GM Packet PO SCH (09:29)
[2021-09-12] MEDS: Spironolactone 25 MG Tab PO SCH (09:32)
[2021-09-12] MEDS: Digoxin 125 MCG Tab PO SCH (11:25)
[2021-09-12] MEDS ORDERED: REMDESIVIR 200 MG in Sodium Chloride 0.9% 250 ML IV ONE (11:30)
[2021-09-13] MEDS: Acetaminophen/oxyCODONE 325-5 MG Tab PO PRN ×3 (02:56→21:09)
[2021-09-13] MEDS: Famotidine 20 MG Tab PO SCH ×2 (08:00→17:40)
[2021-09-13] MEDS ORDERED: Sennosides 8.6 MG Tab PO PRN (08:45)
[2021-09-13] MEDS: Polyethylene Glycol 3350 Powder 17 GM Packet PO SCH (09:13)
[2021-09-13] MEDS: Amiodarone 200 MG Tab PO SCH (09:15)
[2021-09-13] MEDS: Furosemide 40 MG Tab PO SCH (09:19)
[2021-09-13] MEDS: Carvedilol 12.5 MG Tab PO SCH ×2 (09:19→21:06)
[2021-09-13] MEDS: Saccharomyces Boulardii (Probiotic) 250 MG Cap PO SCH (09:20)
[2021-09-13] MEDS: Allopurinol 300 MG Tab PO SCH (09:20)
[2021-09-13] MEDS: Spironolactone 25 MG Tab PO SCH (09:21)
[2021-09-13] MEDS: Apixaban 5 MG Tab PO SCH ×2 (09:21→21:06)
[2021-09-13] MEDS: amLODIPine 5 MG Tab PO SCH (09:21)
[2021-09-13] MEDS: Insulin Glargine,Human Rec. Analog 100 Units/ML 3 ML Pen SUBCUT SCH ×2 (09:23→21:07)
[2021-09-13] MEDS: Insulin Lispro 100 Unit/ML 3 ML KwikPen SUBCUT SCH ×4 (09:26→21:06)
[2021-09-13] MEDS: REMDESIVIR 100 MG in Sodium Chloride 0.9% 100 ML IV SCH (12:15)
[2021-09-13] MEDS: Digoxin 125 MCG Tab PO SCH (12:15)
[2021-09-14] MEDS: Acetaminophen/oxyCODONE 325-5 MG Tab PO PRN (08:35)
[2021-09-14] MEDS: Carvedilol 12.5 MG Tab PO SCH ×2 (08:42→20:30)
[2021-09-14] MEDS: Allopurinol 300 MG Tab PO SCH (08:42)
[2021-09-14] MEDS: Furosemide 40 MG Tab PO SCH (08:42)
[2021-09-14] MEDS: Famotidine 20 MG Tab PO SCH ×2 (08:42→17:53)
[2021-09-14] MEDS: Spironolactone 25 MG Tab PO SCH (08:43)
[2021-09-14] MEDS: Apixaban 5 MG Tab PO SCH ×2 (08:43→20:30)
[2021-09-14] MEDS: amLODIPine 5 MG Tab PO SCH (08:43)
[2021-09-14] MEDS: Saccharomyces Boulardii (Probiotic) 250 MG Cap PO SCH (08:44)
[2021-09-14] MEDS: Polyethylene Glycol 3350 Powder 17 GM Packet PO SCH ×2 (08:44→20:32)
[2021-09-14] MEDS: Amiodarone 200 MG Tab PO SCH (08:44)
[2021-09-14] MEDS: Insulin Glargine,Human Rec. Analog 100 Units/ML 3 ML Pen SUBCUT SCH ×2 (08:48→20:28)
[2021-09-14] MEDS: REMDESIVIR 100 MG in Sodium Chloride 0.9% 100 ML IV SCH (10:47)
[2021-09-14] MEDS: Digoxin 125 MCG Tab PO SCH ×2 (10:47→11:42)
[2021-09-14] MEDS: Insulin Lispro 100 Unit/ML 3 ML KwikPen SUBCUT SCH ×4 (11:41→20:29)
[2021-09-15] MEDS: Famotidine 20 MG Tab PO SCH ×2 (06:02→18:50)
[2021-09-15] MEDS ORDERED: Benzocaine/Cetylpyridinium/Menthol Lozenge MUCMEM PRN (07:05)
[2021-09-15] MEDS: Saccharomyces Boulardii (Probiotic) 250 MG Cap PO SCH (08:19)
[2021-09-15] MEDS: Carvedilol 12.5 MG Tab PO SCH ×2 (08:19→22:57)
[2021-09-15] MEDS: Morphine 2 MG/ML SYRINGE IVPUSH PRN (08:19)
[2021-09-15] MEDS: Amiodarone 200 MG Tab PO SCH (08:24)
[2021-09-15] MEDS: Polyethylene Glycol 3350 Powder 17 GM Packet PO SCH ×2 (08:24→22:55)
[2021-09-15] MEDS: amLODIPine 5 MG Tab PO SCH (08:24)
[2021-09-15] MEDS: Apixaban 5 MG Tab PO SCH ×2 (08:25→23:02)
[2021-09-15] MEDS: Furosemide 40 MG Tab PO SCH (08:25)
[2021-09-15] MEDS: Allopurinol 300 MG Tab PO SCH (08:25)
[2021-09-15] MEDS: Spironolactone 25 MG Tab PO SCH (08:25)
[2021-09-15] MEDS: Insulin Glargine,Human Rec. Analog 100 Units/ML 3 ML Pen SUBCUT SCH ×2 (08:27→23:02)
[2021-09-15] MEDS: Insulin Lispro 100 Unit/ML 3 ML KwikPen SUBCUT SCH ×4 (09:00→20:23)
[2021-09-15] MEDS: Digoxin 125 MCG Tab PO SCH (12:06)
[2021-09-15] MEDS: Acetaminophen/oxyCODONE 325-5 MG Tab PO PRN ×3 (12:07→22:56)
[2021-09-15] MEDS: REMDESIVIR 100 MG in Sodium Chloride 0.9% 100 ML IV SCH (12:09)
[2021-09-16] MEDS: Acetaminophen/oxyCODONE 325-5 MG Tab PO PRN ×2 (05:06→14:08)
[2021-09-16] MEDS: Famotidine 20 MG Tab PO SCH ×2 (05:06→17:58)
[2021-09-16] MEDS: Insulin Lispro 100 Unit/ML 3 ML KwikPen SUBCUT SCH ×4 (07:51→20:22)
[2021-09-16] MEDS: Insulin Glargine,Human Rec. Analog 100 Units/ML 3 ML Pen SUBCUT SCH ×2 (08:07→20:23)
[2021-09-16] MEDS: amLODIPine 5 MG Tab PO SCH (08:08)
[2021-09-16] MEDS: Saccharomyces Boulardii (Probiotic) 250 MG Cap PO SCH (08:08)
[2021-09-16] MEDS: Spironolactone 25 MG Tab PO SCH (08:08)
[2021-09-16] MEDS: Amiodarone 200 MG Tab PO SCH (08:09)
[2021-09-16] MEDS: Apixaban 5 MG Tab PO SCH ×2 (08:09→20:21)
[2021-09-16] MEDS: Furosemide 40 MG Tab PO SCH (08:09)
[2021-09-16] MEDS: Allopurinol 300 MG Tab PO SCH (08:09)
[2021-09-16] MEDS: Carvedilol 12.5 MG Tab PO SCH ×2 (08:09→20:21)
[2021-09-16] MEDS: Polyethylene Glycol 3350 Powder 17 GM Packet PO SCH ×2 (08:13→20:22)
[2021-09-16] MEDS: Digoxin 125 MCG Tab PO SCH (11:16)
[2021-09-16] MEDS: REMDESIVIR 100 MG in Sodium Chloride 0.9% 100 ML IV SCH (11:17)
[2021-09-17] MEDS: Acetaminophen/oxyCODONE 325-5 MG Tab PO PRN (06:40)
[2021-09-17] MEDS: Famotidine 20 MG Tab PO SCH (06:40)
[2021-09-17] MEDS: Insulin Lispro 100 Unit/ML 3 ML KwikPen SUBCUT SCH ×2 (08:02→11:16)
[2021-09-17] MEDS: Apixaban 5 MG Tab PO SCH (08:04)
[2021-09-17] MEDS: Acetaminophen 325 MG Tab PO PRN (08:05)
[2021-09-17] MEDS: Furosemide 40 MG Tab PO SCH (08:05)
[2021-09-17] MEDS: Spironolactone 25 MG Tab PO SCH (08:05)
[2021-09-17] MEDS: Allopurinol 300 MG Tab PO SCH (08:05)
[2021-09-17] MEDS: Carvedilol 12.5 MG Tab PO SCH (08:06)
[2021-09-17] MEDS: Amiodarone 200 MG Tab PO SCH (08:06)
[2021-09-17] MEDS: Saccharomyces Boulardii (Probiotic) 250 MG Cap PO SCH (08:07)
[2021-09-17] MEDS: Insulin Glargine,Human Rec. Analog 100 Units/ML 3 ML Pen SUBCUT SCH (08:07)
[2021-09-17] MEDS: amLODIPine 5 MG Tab PO SCH (08:07)
[2021-09-17] MEDS: Polyethylene Glycol 3350 Powder 17 GM Packet PO SCH (08:08)
[2021-09-17 11:43] VITALS: PULSE 70
[2021-09-17] MEDS: Digoxin 125 MCG Tab PO SCH (11:43)
[2021-09-17 12:06] VITALS: BP 111/72
== END 2021-09-17 12:30 | disposition home or self-care (01) | DRG 469 ==
LOC: JD.SDS 09:52 → JD.OB 17:33 → JD.SDS 09-10 14:46 → JD.MS 09-10 16:20
PROVIDERS: ADMIT Orthopaedic Surgery; ATTEND Orthopaedic Surgery
PROC: 0SR90JZ Replacement of Right Hip Joint with Synthetic Substitute, Open Approach (ICD-10-PCS; 2021-09-09)
PROC: XW033E5 Introduction of Remdesivir Anti-infective into Peripheral Vein, Percutaneous Approach, New Technology Group 5 (ICD-10-PCS; principal; 2021-09-12)
DX: M16.11 Unilateral primary osteoarthritis, right hip (principal); J96.01 Acute respiratory failure with hypoxia; U07.1 COVID-19; I48.21 Permanent atrial fibrillation; I50.42 Chronic combined systolic (congestive) and diastolic (congestive) heart failure; Z68.41 Body mass index [BMI] 40.0-44.9, adult; E11.9 Type 2 diabetes mellitus without complications; G89.29 Other chronic pain; M25.551 Pain in right hip; H54.7 Unspecified visual loss; I48.91 Unspecified atrial fibrillation; I11.0 Hypertensive heart disease with heart failure; M19.90 Unspecified osteoarthritis, unspecified site; M10.9 Gout, unspecified; E66.9 Obesity, unspecified; Z90.89 Acquired absence of other organs; Z79.4 Long term (current) use of insulin; Z88.5 Allergy status to narcotic agent; Z91.018 Allergy to other foods; Z79.899 Other long term (current) drug therapy; Z79.01 Long term (current) use of anticoagulants; Z88.6 Allergy status to analgesic agent; Z87.01 Personal history of pneumonia (recurrent); Z86.711 Personal history of pulmonary embolism; Z90.710 Acquired absence of both cervix and uterus; Z87.891 Personal history of nicotine dependence
CPT/HCPCS: 01214; 36415; 51798; 71045; 71045-26; 73501-26-RT; 73501-RT; 80053; 80162; 82728; 82947; 83735; 86140; 93970; 93970-26; 94760; 94761; 97110-GP; 97116-GP; 97161-GP; 97530-GP; 99222; A9270-GY; C1713; C1776; J0171; J0690; J0697; J1815; J1815-GY; J2250; J2270; J2370; J2405; J2704; J3010; J3370; J7050; J7120; U0002

== ENCOUNTER 2022-12-30 03:56 | Emergency (ER) | payer MEDICARE, BC ==
[2022-12-30] MEDS ORDERED: VANCOmycin 2 GM/400 ML 2 GM in Premix Bag 1 BAG IV ONE (04:24)
[2022-12-30 04:59] LABS: C-REACTIVE PROTEIN 6.4 mg/dL (<1.0); URIC ACID 7.6 mg/dL (2.6-6.0)
[2022-12-30] MEDS ORDERED: Acetaminophen/oxyCODONE 325-5 MG Tab PO ONE (04:59)
[2022-12-30] MEDS ORDERED: Ondansetron 4 MG Tab.DIS ONE (05:17)
[2022-12-30] MEDS ORDERED: Ondansetron 4 MG Tab.DIS PO ONE (05:18)
[2022-12-30 05:20] LABS: APPEARANCE,URINE CLEAR (Clear); BILIRUBIN,URINE NEGATIVE (Negative); COLOR,URINE YELLOW (Yellow); GLUCOSE,URINE TRACE (Negative); KETONES,URINE NEGATIVE (Negative); LEUKOCYTE ESTERASE,URINE NEGATIVE (Negative); NITRITE,URINE NEGATIVE (Negative); OCCULT BLOOD,URINE 1+ (Negative); PROTEIN,URINE 3+ (Negative)
[2022-12-30 06:02] LABS: BACTERIA,URINE MODERATE /hpf (FEW); RBC,URINE NOT SEEN /hpf (0-5); WBC,URINE 0-5 /hpf (0-5)
[2022-12-30 06:03] LABS: MUCUS,URINE NOT SEEN /hpf (FEW)
[2022-12-30 06:27] LABS: BASOPHILS PERCENT AUTO 0.3 % (0.0-1.0); HEMATOCRIT 47.1 % (37.0-47.0); IMMATURE GRAN ABSOLUTE AUTO 0.04 K/mm3 (0.00-0.05); IMMATURE GRAN PERCENT AUTO 0.4 % (0.0-0.4); LYMPHOCYTES ABSOLUTE AUTO 1.6 K/mm3 (1.0-4.8); LYMPHOCYTES PERCENT AUTO 14.6 % (24.0-44.0); MEAN CORPUSCULAR HEMOGLOBIN 31.1 pg (28.0-32.0); MEAN CORPUSCULAR VOLUME 91.5 fl (83.0-99.0); MEAN PLATELET VOLUME 12.8 fl (9.4-12.3); MONOCYTES ABSOLUTE AUTO 0.7 K/mm3 (0.0-0.8); MONOCYTES PERCENT AUTO 5.9 % (0.0-8.0); NEUTROPHILS ABSOLUTE AUTO 8.9 K/mm3 (1.8-7.7); NEUTROPHILS PERCENT AUTO 78.8 % (41.0-71.0); PLATELET COUNT,PLT 148 K/mm3 (150-400); RED BLOOD CELL COUNT 5.15 M/mm3 (4.10-5.30); WHITE BLOOD CELL COUNT,WBC 11.24 K/mm3 (3.9-11.3)
[2022-12-30 06:37] LABS: A/G RATIO 0.8 (1-2); ALBUMIN 3.3 g/dl (3.4-5.0); ANION GAP 17.2 (5-15); CALCIUM 8.9 mg/dL (8.5-10.1); EST CRCL DRUG DOSING (CG) 57.05 mL/min; PROTEIN TOTAL,TP 7.4 g/dl (6.4-8.2)
[2022-12-30 06:47] LABS: POTASSIUM,K 4.2 mEq/L (3.5-5.1)
[2022-12-30 09:22] VITALS: BP 126/73; PULSE 91
== END 2022-12-30 09:13 | disposition home or self-care (01) ==
LOC: JD.ED 03:56
DX: L03.115 Cellulitis of right lower limb (principal); E11.65 Type 2 diabetes mellitus with hyperglycemia; I48.91 Unspecified atrial fibrillation; I10 Essential (primary) hypertension; E66.9 Obesity, unspecified; Z68.41 Body mass index [BMI] 40.0-44.9, adult; Z88.8 Allergy status to other drugs, medicaments and biological substances; Z88.5 Allergy status to narcotic agent; Z88.4 Allergy status to anesthetic agent; Z91.048 Other nonmedicinal substance allergy status; Z79.4 Long term (current) use of insulin; Z79.899 Other long term (current) drug therapy
CPT/HCPCS: 36415; 73610; 80053; 81001; 82947; 83605; 84550; 85025; 85652; 86140; 87040; 96365; 96366; 99285; A9270; J3370; 99283

== ENCOUNTER 2025-02-06 19:31 | Emergency (ER) | payer BC, MEDICARE ==
[2025-02-06] MEDS ORDERED: Sodium Chloride 0.9% 10 ML Syringe FLUSH PRN (19:56)
[2025-02-06 20:02] VITALS: BP 152/90; PULSE 68
[2025-02-06 20:06] LABS: BASOPHILS ABSOLUTE AUTO 0.0 K/mm3 (0.0-0.2); BASOPHILS PERCENT AUTO 0.8 % (0.0-1.0); EOSINOPHILS ABSOLUTE AUTO 0.0 K/mm3 (0.0-0.4); EOSINOPHILS PERCENT AUTO 0.8 % (0.0-6.0); IMMATURE GRAN ABSOLUTE AUTO 0.02 K/mm3 (0.00-0.05); IMMATURE GRAN PERCENT AUTO 0.4 % (0.0-0.4); LYMPHOCYTES ABSOLUTE AUTO 1.4 K/mm3 (1.0-4.8); LYMPHOCYTES PERCENT AUTO 26.5 % (24.0-44.0); MEAN PLATELET VOLUME 11.9 fl (9.4-12.3); MONOCYTES ABSOLUTE AUTO 0.5 K/mm3 (0.0-0.8); MONOCYTES PERCENT AUTO 9.5 % (0.0-8.0); NEUTROPHILS ABSOLUTE AUTO 3.3 K/mm3 (1.8-7.7); NEUTROPHILS PERCENT AUTO 62.0 % (41.0-71.0); NRBC ABSOLUTE 0.00 (0.00-0.02); NRBC PERCENT 0.0 % (0.0-0.2); PLATELET COUNT,PLT 150 K/mm3 (150-400); RED BLOOD CELL COUNT 5.39 M/mm3 (4.10-5.30); WHITE BLOOD CELL COUNT,WBC 5.29 K/mm3 (3.9-11.3)
[2025-02-06] MEDS: Ondansetron 4 MG/2 ML SDV IVPUSH ONE (20:07)
[2025-02-06 20:20] LABS: A/G RATIO 0.9 (1-2); ALANINE AMINOTRANSFERASE,ALT 303.0 U/L (14-59); ASPARTATE AMNIOTRANSFERASE,AST 217.0 U/L (15-37); BILIRUBIN TOTAL 2.7 mg/dL (0.2-1.0); BLOOD UREA NITROGEN,BUN 26.0 mg/dL (7-18); CARBON DIOXIDE,CO2 28.0 mEq/L (21-32); CHLORIDE,CL 102.0 mEq/L (98-107); CREATININE 1.2 mg/dL (0.55-1.02); EST CRCL DRUG DOSING (CG) 44.0 mL/min; ESTIMATED GFR 49.0 mL/min (>60); GLUCOSE RANDOM 121.0 mg/dL (70-99); POTASSIUM,K 4.3 mEq/L (3.5-5.1); PROTEIN TOTAL,TP 7.2 g/dl (6.4-8.2); SODIUM,NA 139.0 mEq/L (136-145)
[2025-02-06 23:24] LABS: APPEARANCE,URINE CLEAR (Clear); GLUCOSE,URINE NEGATIVE (Negative); OCCULT BLOOD,URINE NEGATIVE (Negative)
[2025-02-06 23:41] LABS: EPITHELIAL CELLS,URINE 0-5 /hpf (0-5)
== END 2025-02-06 23:00 ==
LOC: JD.ED 19:31
DX: K80.51 Calculus of bile duct without cholangitis or cholecystitis with obstruction (principal); I10 Essential (primary) hypertension; E66.9 Obesity, unspecified; E11.9 Type 2 diabetes mellitus without complications; Z88.5 Allergy status to narcotic agent; Z88.8 Allergy status to other drugs, medicaments and biological substances; Z79.4 Long term (current) use of insulin; Z79.899 Other long term (current) drug therapy; Z90.710 Acquired absence of both cervix and uterus; Z87.891 Personal history of nicotine dependence; Z68.33 Body mass index [BMI] 33.0-33.9, adult
CPT/HCPCS: 36415; 76705; 80053; 81001; 83690; 85025; 96361; 96374; 96375; 99285; J2405; J7030; J1171